=== PATIENT | male | born 1955 | race Caucasian/White ===

== ENCOUNTER 2020-05-26 15:27 | Inpatient (IN) | payer BC, MEDICARE ==
[2020-05-26] MEDS ORDERED: Acetaminophen 500 MG Tab PO ONE (16:15)
[2020-05-26] MEDS ORDERED: guaiFENesin 600 MG Tab.ER PO ONE (16:18)
[2020-05-26] MEDS ORDERED: cefTRIAXone 1 GM in Sodium Chloride 0.9% 50 ML IV ONE (17:07)
[2020-05-26] MEDS ORDERED: Azithromycin 500 MG in Sodium Chloride 0.9% 250 ML IV ONE (17:08)
--- NOTE | 2020-05-26 17:47 | CR ---
INDICATION: Cough, shortness of breath, COVID negative. CHEST TWO VIEWS: Two PA views and a lateral view of the chest were obtained 05/26/20 and compared with 06/06/16 again revealing the heart to be normal in size and shape. Prominent AP diameter with slightly flattened diaphragm leaves suggest progressive COPD and/or exacerbation of COPD. Pulmonary markings are similar to the previous examination, without a definite active infiltrate or effusion. Progressive hypertrophic degenerative changes are noted at mid thoracic level of moderate degree. A nodular appearing density in the right lower lung field most likely represents nipple shadow and likely was present on the previous study. Evidence of exogenous obesity is suggested. Some linear densities are noted at the left costophrenic that appear to be new and may be on the basis of interval fibrosis or possibly subsegmental atelectasis. IMPRESSION: 1. Possible exacerbation or progressive COPD. 2. No other definite acute process. 3. DJD spine - progressive. MTDD
--- NOTE | 2020-05-26 18:13 | EDM.PDOC ---
ED HPI GENERAL MEDICAL PROBLEM - General Chief Complaint: Respiratory Problem Stated Complaint: cough , shortness of breath Time Seen by Provider: 05/26/20 16:05 Source of Information: Reports: Patient, Family History Limitations: Reports: No Limitations - History of Present Illness INITIAL COMMENTS - FREE TEXT/NARRATIVE: developed cough 3-4 days prior with clear phlegm , has been getting worse and in the last 24 hrs , changed color to thick yellow , producing more phlegm and getting fever and chills today denies contact with COVID patients states he has history of CHF but has not had any leg swelling recently Onset: Gradual Onset Date: 05/24/20 Duration: Day(s): (3), Getting Worse Location: Reports: Chest Quality: Reports: Pressure (with coughing) Severity: Moderate Worsens with: Reports: None Context: Reports: Other (unsure : has history of COPD) Associated Symptoms: Reports: Cough, Fever/Chills, Malaise, Shortness of Breath, Weakness Generalized Pain Score (Numeric/FACES): 4 DENIES ANY PAIN WHEN ASKED AT PRESENT TIME. Pain Score (Numeric/FACES): 0 - Related Data Allergies Allergy/AdvReac Type Severity Reaction Status Date / Time No Known Allergies Allergy Verified 06/06/16 08:40 Home Meds: Home Meds Albuterol [Ventolin HFA] 2 puff INH Q4HR PRN 09/14/15 [History] Aspirin [Ecotrin] 81 mg PO DAILY 06/06/16 [History] Folic Acid 1 mg PO DAILY 06/06/16 [History] Furosemide 20 mg PO DAILY 06/06/16 [History] Lisinopril 30 mg PO DAILY 06/06/16 [History] Multivitamin [Multi-Day Vitamins] 1 tab PO DAILY 06/06/16 [History] Tiotropium Dexter [Spiriva] 18 mcg IH DAILY 06/06/16 [History] carvediloL [Carvedilol] 25 mg PO BID 06/06/16 [History] atorvaSTATin [Lipitor] 20 mg PO BEDTIME 05/26/20 [History] Albuterol [Proventil Neb Soln] 2.5 mg IH QID PRN 05/27/20 [History] Past Medical History HEENT History: Reports: None, Epistaxis, Impaired Vision, Otitis Media Cardiovascular History: Reports: CAD, Cardiomyopathy, Heart Failure, Hypertension, NE, SOB on Exertion, Other (See Below) Other Cardiovascular History: Patient states years ago that he ws told by a doctor that he had a murmur. 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 Patient voiced that he has arthritis in his hands/ fingers., hx fx ankle Neurological History: Reports: TIA Psychiatric History: Reports: Anxiety Endocrine/Metabolic History: Reports: Obesity/BMI 30+ Immunologic History: Reports: None Oncologic (Cancer) History: Reports: None Dermatologic History: Reports: None - Infectious Disease History Infectious Disease History: Reports: Chicken Pox, Measles, Mumps, Scarlet Fever - Past Surgical History Head Surgeries/Procedures: Reports: None HEENT Surgical History: Reports: Oral Surgery, Tonsillectomy Cardiovascular Surgical History: Reports: None Respiratory Surgical History: Reports: None GI Surgical History: Reports: Colonoscopy, EGD Male Surgical History: Reports: Vasectomy Musculoskeletal Surgical History: Reports: Carpal Tunnel Other Musculoskeletal Surgeries/Procedures:: L carpal tunnel surgery Social & Family History - Family History Family Medical History: No Pertinent Family History - Tobacco Use Tobacco Use Status *Q: Current Every Day Tobacco User Years of Tobacco use: 45 Packs/Tins Daily: 1 - Caffeine Use Caffeine Use: Reports: None - Alcohol Use Days Per Week of Alcohol Use: 5 Number of Drinks Per Day: 3 Total Drinks Per Week: 15 - Recreational Drug Use Recreational Drug Use: No ED ROS GENERAL - Review of Systems Review Of Systems: See Below Constitutional: Reports: Fever, Chills, Malaise, Weakness, Fatigue HEENT: Reports: Sinus Problem Respiratory: Reports: Shortness of Breath, Cough, Sputum. Denies: Wheezing, Pleuritic Chest Pain, Hemoptysis Cardiovascular: Reports: Lightheadedness Endocrine: Reports: Fatigue GI/Abdominal: Reports: Anorexia : Reports: No Symptoms Musculoskeletal: Reports: No Symptoms Skin: Reports: No Symptoms Neurological: Reports: Dizziness Psychiatric: Reports: Anxiety. Denies: Agitation, Confusion Hematologic/Lymphatic: Reports: No Symptoms Immunologic: Reports: No Symptoms ED EXAM, GENERAL - Physical Exam Exam: See Below Exam Limited By: No Limitations General Appearance: Alert, WD/WN, No Apparent Distress, Anxious Eye Exam: Bilateral Eye: EOMI Ears: Normal External Exam Ear Exam: Bilateral Ear: Auricle Normal Nose: Normal Inspection Throat/Mouth: Normal Oropharynx Head: Atraumatic, Normocephalic Neck: Supple, Non-Tender Respiratory/Chest: Lungs Clear, Normal Breath Sounds Cardiovascular: Normal Peripheral Pulses GI/Abdominal: Normal Bowel Sounds, Soft, Non-Tender, Distended (Male) Exam: Deferred Rectal (Males) Exam: Deferred Back Exam: Full Range of Motion Extremities: Normal Inspection, Normal Range of Motion Neurological: Alert, Oriented, CN II-XII Intact Psychiatric: Anxious Skin Exam: Warm, Dry, Intact Lymphatic: No Adenopathy Course - Vital Signs Last Recorded V/S: Last Vital Signs Temp 37.1 C 05/27/20 07:30 Pulse 98 05/27/20 07:30 Resp 24 H 05/27/20 07:30 BP 105/72 05/27/20 07:30 Pulse Ox 88 L 05/27/20 07:30 - Orders/Labs/Meds Orders: Active Orders 24 hr Category Date Time Status Patient Status [ADT] Routine ADT 05/26/20 19:43 Active Antiembolic Devices [RC] .Routine Care 05/26/20 19:44 Active Intake and Output [RC] 06,14,22 Care 05/26/20 19:43 Active Oxygen Therapy [RC] CONTINUOUS Care 05/26/20 19:53 Active Pulse Oximetry [RC] PRN Care 05/26/20 19:43 Active Up ad Cassandra [RC] ASDIRECTED Care 05/26/20 19:43 Active VTE/DVT Education [RC] Click to Edit Care 05/26/20 19:44 Active Vital Signs [RC] 08,12,16,20,00,04 Care 05/26/20 19:43 Active CULTURE BLOOD [BC] Urgent Lab 05/26/20 16:50 Received CULTURE BLOOD [BC] Urgent Lab 05/26/20 16:55 Received Acetaminophen [TylenoL] Med 05/26/20 19:43 Active 650 mg PO Q4H PRN Magnesium Hydroxide [Milk of Magnesia] Med 05/26/20 19:43 Active 30 ml PO BID PRN Blood Culture x2 Reflex Set [OM.PC] Urgent Oth 05/26/20 16:13 Ordered DVT/VTE Prophylaxis Reflex [OM.PC] Per Unit Routine Oth 05/26/20 19:43 Ordered Isolation [COMM] Routine Oth 05/26/20 15:40 Ordered Resuscitation Status Routine Resus Stat 05/26/20 19:43 Ordered EKG 12 Lead [EK] Routine Ther 05/26/20 19:34 Ordered Medication Orders Acetaminophen (Tylenol) 650 mg PO Q4H PRN PRN Reason: analgesia/fever Albuterol (Ventolin Hfa) 0 gm INH Q4H PRN PRN Reason: Wheezing Albuterol/Ipratropium (Duoneb 3.0-0.5 Mg/3 Ml) 3 ml NEB QID PRN PRN Reason: Cough Last Admin: 05/27/20 05:52 Dose: 3 ml Documented by: Admin: 05/26/20 23:27 Dose: 3 ml Documented by: KERLINE Aspirin (Halfprin) 81 mg PO DAILY [facility] Atorvastatin Calcium (Lipitor) 20 mg PO BEDTIME INGRID Last Admin: 05/26/20 21:59 Dose: 20 mg Documented by: KERLINE Carvedilol (Coreg) 25 mg PO BIDMEALS [facility] Ceftriaxone Sodium (Rocephin) 1 gm IVPUSH Q24H [facility] Enoxaparin Sodium (Lovenox) 40 mg SUBCUT DAILY [facility] Folic Acid (Folic Acid) 1 mg PO DAILY [facility] Furosemide (Lasix) 20 mg PO DAILY [facility] Azithromycin 500 mg/ Sodium (Chloride) 250 mls @ 250 mls/hr IV Q24H [facility] Stop: 05/28/20 10:14 Lisinopril (Prinivil) 30 mg PO DAILY [facility] Magnesium Hydroxide (Milk Of Magnesia) 30 ml PO BID PRN PRN Reason: Constipation Tiotropium Dexter (Spiriva Handihaler) 18 mcg INH DAILY [facility] Labs: Laboratory Tests 05/26/20 05/26/20 05/26/20 Range/Units 15:55 16:05 16:05 WBC 17.1 H (3.2-10.1) x10-3/uL RBC 4.87 (3.90-5.90) x10(6)uL Hgb 16.2 (12.9-17.7) g/dL Hct 49.2 (38.3-50.1) % MCV 101.1 H (80.8-98.7) fL MCH 33.3 (27.0-33.3) pg MCHC 32.9 (28.7-35.3) g/dL RDW 13.0 (12.4-15.0) % Plt Count 181 (117-477) x10(3)uL MPV 9.1 (6.7-11.0) fL Neut % (Auto) 83.1 H (40.3-71.8) % Lymph % (Auto) 10.0 L (15.8-45.3) % Sutter % (Auto) 6.2 (5.5-15.2) % Eos % (Auto) 0.4 (0.1-6.8) % Baso % (Auto) 0.3 (0.3-3.8) % Neut # (Auto) 14.2 H (1.7-6.9) x10-3/uL Lymph # (Auto) 1.7 (0.5-4.5) x10-3/uL Sutter # (Auto) 1.1 (0.0-1.2) x10-3/uL Eos # (Auto) 0.1 (0.0-0.6) x10-3/uL Baso # (Auto) 0.0 (0.0-0.3) x10-3/uL D-Dimer, Quantitative (0.0-0.59) mg/LFEU Sodium 136 (135-145) mmol/L Potassium 3.8 (3.5-5.3) mmol/L Chloride 95 L (100-110) mmol/L Carbon Dioxide 31 (21-32) mmol/L BUN 11 (7-18) mg/dL Creatinine 1.0 (0.70-1.30) mg/dL Est Cr Clr Drug Dosing 70.30 mL/min Estimated GFR (MDRD) > 60 (>60) BUN/Creatinine Ratio 11.0 (9-20) Glucose 121 H (80-116) mg/dL Lactic Acid (0.4-2.0) mmol/L Calcium 8.9 (8.6-10.2) mg/dL Total Bilirubin 0.9 (0.1-1.3) mg/dL AST 24 (5-25) IU/L ALT 29 (12-36) U/L Alkaline Phosphatase 114 H (56-112) IU/L Troponin I (4.0-60.3) pg/mL C-Reactive Protein (0.5-0.9) mg/dL NT-Pro-B Natriuret Pep (<=125) pg/mL Total Protein 7.9 (6.0-8.0) g/dL Albumin 3.1 L (3.2-4.6) g/dL Globulin 4.8 g/dL Albumin/Globulin Ratio 0.7 SARS-CoV-2 RNA (KIM) Negative (NEGATIVE) 05/26/20 05/26/20 05/26/20 Range/Units 16:05 16:05 16:25 WBC (3.2-10.1) x10-3/uL RBC (3.90-5.90) x10(6)uL Hgb (12.9-17.7) g/dL Hct (38.3-50.1) % MCV (80.8-98.7) fL MCH (27.0-33.3) pg MCHC (28.7-35.3) g/dL RDW (12.4-15.0) % Plt Count (117-477) x10(3)uL MPV (6.7-11.0) fL Neut % (Auto) (40.3-71.8) % Lymph % (Auto) (15.8-45.3) % Sutter % (Auto) (5.5-15.2) % Eos % (Auto) (0.1-6.8) % Baso % (Auto) (0.3-3.8) % Neut # (Auto) (1.7-6.9) x10-3/uL Lymph # (Auto) (0.5-4.5) x10-3/uL Sutter # (Auto) (0.0-1.2) x10-3/uL Eos # (Auto) (0.0-0.6) x10-3/uL Baso # (Auto) (0.0-0.3) x10-3/uL D-Dimer, Quantitative 0.62 H (0.0-0.59) mg/LFEU Sodium (135-145) mmol/L Potassium (3.5-5.3) mmol/L Chloride (100-110) mmol/L Carbon Dioxide (21-32) mmol/L BUN (7-18) mg/dL Creatinine (0.70-1.30) mg/dL Est Cr Clr Drug Dosing mL/min Estimated GFR (MDRD) (>60) BUN/Creatinine Ratio (9-20) Glucose (80-116) mg/dL Lactic Acid (0.4-2.0) mmol/L Calcium (8.6-10.2) mg/dL Total Bilirubin (0.1-1.3) mg/dL AST (5-25) IU/L ALT (12-36) U/L Alkaline Phosphatase (56-112) IU/L Troponin I 109.6 H* (4.0-60.3) pg/mL C-Reactive Protein (0.5-0.9) mg/dL NT-Pro-B Natriuret Pep 89 (<=125) pg/mL Total Protein (6.0-8.0) g/dL Albumin (3.2-4.6) g/dL Globulin g/dL Albumin/Globulin Ratio SARS-CoV-2 RNA (KIM) (NEGATIVE) 05/26/20 05/26/20 05/26/20 Range/Units 16:50 16:50 19:05 WBC (3.2-10.1) x10-3/uL RBC (3.90-5.90) x10(6)uL Hgb (12.9-17.7) g/dL Hct (38.3-50.1) % MCV (80.8-98.7) fL MCH (27.0-33.3) pg MCHC (28.7-35.3) g/dL RDW (12.4-15.0) % Plt Count (117-477) x10(3)uL MPV (6.7-11.0) fL Neut % (Auto) (40.3-71.8) % Lymph % (Auto) (15.8-45.3) % Sutter % (Auto) (5.5-15.2) % Eos % (Auto) (0.1-6.8) % Baso % (Auto) (0.3-3.8) % Neut # (Auto) (1.7-6.9) x10-3/uL Lymph # (Auto) (0.5-4.5) x10-3/uL Sutter # (Auto) (0.0-1.2) x10-3/uL Eos # (Auto) (0.0-0.6) x10-3/uL Baso # (Auto) (0.0-0.3) x10-3/uL D-Dimer, Quantitative (0.0-0.59) mg/LFEU Sodium (135-145) mmol/L Potassium (3.5-5.3) mmol/L Chloride (100-110) mmol/L Carbon Dioxide (21-32) mmol/L BUN (7-18) mg/dL Creatinine (0.70-1.30) mg/dL Est Cr Clr Drug Dosing mL/min Estimated GFR (MDRD) (>60) BUN/Creatinine Ratio (9-20) Glucose (80-116) mg/dL Lactic Acid 0.8 (0.4-2.0) mmol/L Calcium (8.6-10.2) mg/dL Total Bilirubin (0.1-1.3) mg/dL AST (5-25) IU/L ALT (12-36) U/L Alkaline Phosphatase (56-112) IU/L Troponin I 100.9 H* (4.0-60.3) pg/mL C-Reactive Protein 21.1 H* (0.5-0.9) mg/dL NT-Pro-B Natriuret Pep (<=125) pg/mL Total Protein (6.0-8.0) g/dL Albumin (3.2-4.6) g/dL Globulin g/dL Albumin/Globulin Ratio SARS-CoV-2 RNA (KIM) (NEGATIVE) Meds: Medications Generic Name Dose Route Start Last Admin Trade Name Freq PRN Reason Stop Dose Admin Acetaminophen 650 mg 05/26/20 19:43 Tylenol PO Q4H PRN analgesia/fever Albuterol 0 gm 05/26/20 20:48 Ventolin Hfa INH Q4H PRN Wheezing Albuterol/Ipratropium 3 ml 05/26/20 20:48 05/27/20 05:52 Duoneb 3.0-0.5 Mg/3 Ml NEB 3 ml QID PRN Administration Cough Aspirin 81 mg 05/27/20 09:00 Halfprin PO DAILY [facility] Atorvastatin Calcium 20 mg 05/26/20 21:00 05/26/20 21:59 Lipitor PO 20 mg BEDTIME [facility] Administration Carvedilol 25 mg 05/27/20 08:00 Coreg PO BIDMEALS [facility] Ceftriaxone Sodium 1 gm 05/27/20 17:00 Rocephin IVPUSH Q24H [facility] Enoxaparin Sodium 40 mg 05/27/20 09:30 Lovenox SUBCUT DAILY [facility] Folic Acid 1 mg 05/27/20 09:00 Folic Acid PO DAILY [facility] Furosemide 20 mg 05/27/20 09:00 Lasix PO DAILY [facility] Azithromycin 500 mg/ Sodium 250 mls @ 250 mls/hr 05/27/20 09:15 Chloride IV 05/28/20 10:14 Q24H [facility] Lisinopril 30 mg 05/27/20 09:00 Prinivil PO DAILY [facility] Magnesium Hydroxide 30 ml 05/26/20 19:43 Milk Of Magnesia PO BID PRN Constipation Tiotropium Dexter 18 mcg 05/27/20 09:00 Spiriva Handihaler INH DAILY [facility] Discontinued Medications Generic Name Dose Route Start Last Admin Trade Name Freq PRN Reason Stop Dose Admin Acetaminophen 1,000 mg 05/26/20 16:15 05/26/20 16:25 Tylenol Extra Strength PO 05/26/20 16:16 1,000 mg ONETIME ONE Administration Carvedilol 25 mg 05/26/20 21:00 05/27/20 06:15 Coreg PO Not Given BID [facility] Carvedilol 25 mg 05/26/20 22:00 05/26/20 21:59 Coreg PO 05/26/20 22:01 25 mg ONETIME ONE Administration Furosemide 20 mg 05/27/20 09:00 Lasix PO DAILY [facility] Guaifenesin 600 mg 05/26/20 16:18 05/26/20 16:25 Mucinex PO 05/26/20 16:19 600 mg ONETIME ONE Administration Ceftriaxone Sodium 1 gm/ 50 mls @ 200 mls/hr 05/26/20 17:07 05/26/20 17:22 Sodium Chloride IV 05/26/20 17:21 200 mls/hr ONETIME ONE Administration Azithromycin 500 mg/ Sodium 250 mls @ 250 mls/hr 05/26/20 17:08 05/26/20 17:50 Chloride IV 05/26/20 18:07 250 mls/hr ONETIME ONE Administration Tiotropium Dexter 18 mcg 05/26/20 20:48 Spiriva Handihaler INH DAILY PRN Shortness of Breath - Re-Assessments/Exams Free Text/Narrative Re-Assessment/Exam: 05/26/20 18:10 pt had EKG , chest Xray and screened for COVID ( negative ) CBC was elevated , : sepsis screen completed and pt given 2 doses of antibiotics Has been having productive cough , has been o n2 liters of oxygen Feeling better Troponin results noted : discussed with pt need to go to in [place] : pt declined Recommended to recheck Troponin level and then re-assess 05/27/20 00:46 Repeat troponin was about the same . Will admit pt and repeat troponin in 6hrs. denies any chset pain , still has sob still declines to go to [place] Will need CT chest Departure - Departure Time of Disposition: 20:00 Disposition: Admitted As Inpatient 65 Clinical Impression: Elevated troponin level, Shortness of breath, Hypoxemia, Fever, Pneumonia - Discharge Information *PRESCRIPTION DRUG MONITORING PROGRAM REVIEWED*: Not Applicable *COPY OF PRESCRIPTION DRUG MONITORING REPORT IN PATIENT SIMIN: Not Applicable Sepsis Event Note (ED) - Evaluation Sepsis Screening Result: Possible Sepsis Risk - My Orders Last 24 Hours: My Active Orders 05/26/20 15:40 Isolation [COMM] Routine 05/26/20 16:13 Blood Culture x2 Reflex Set [OM.PC] Urgent 05/26/20 16:50 CULTURE BLOOD [BC] Urgent 05/26/20 16:55 CULTURE BLOOD [BC] Urgent 05/26/20 19:34 EKG 12 Lead [EK] Routine 05/26/20 19:43 Patient Status [ADT] Routine Intake and Output [RC] 06,14,22 Pulse Oximetry [RC] PRN Up ad Cassandra [RC] ASDIRECTED Vital Signs [RC] 08,12,16,20,00,04 Acetaminophen [TylenoL] 650 mg PO Q4H PRN Magnesium Hydroxide [Milk of Magnesia] 30 ml PO BID PRN DVT/VTE Prophylaxis Reflex [OM.PC] Per Unit Routine Resuscitation Status Routine 05/26/20 19:44 Antiembolic Devices [RC] .Routine VTE/DVT Education [RC] Click to Edit 05/26/20 19:53 Oxygen Therapy [RC] CONTINUOUS - Assessment/Plan Last 24 Hours: My Active Orders 05/26/20 15:40 Isolation [COMM] Routine 05/26/20 16:13 Blood Culture x2 Reflex Set [OM.PC] Urgent 05/26/20 16:50 CULTURE BLOOD [BC] Urgent 05/26/20 16:55 CULTURE BLOOD [BC] Urgent 05/26/20 19:34 EKG 12 Lead [EK] Routine 05/26/20 19:43 Patient Status [ADT] Routine Intake and Output [RC] 06,14,22 Pulse Oximetry [RC] PRN Up ad Cassandra [RC] ASDIRECTED Vital Signs [RC] 08,12,16,20,00,04 Acetaminophen [TylenoL] 650 mg PO Q4H PRN Magnesium Hydroxide [Milk of Magnesia] 30 ml PO BID PRN DVT/VTE Prophylaxis Reflex [OM.PC] Per Unit Routine Resuscitation Status Routine 05/26/20 19:44 Antiembolic Devices [RC] .Routine VTE/DVT Education [RC] Click to Edit 05/26/20 19:53 Oxygen Therapy [RC] CONTINUOUS
[2020-05-26] MEDS ORDERED: Magnesium Hydroxide 400 MG/5 ML Susp 30 ML Cup PO PRN (19:43)
[2020-05-26] MEDS ORDERED: Tiotropium Inhaler 18 MCG Inhalation Powder Cap Kit of 5 INH PRN (20:48)
[2020-05-26] MEDS ORDERED: Albuterol 8 GM Inhaler INH PRN (20:48)
[2020-05-26] MEDS ORDERED: Carvedilol 25 MG Tab PO SCH (21:00)
[2020-05-26] MEDS: atorvaSTATin 20 MG Tab PO SCH (21:59)
[2020-05-26] MEDS ORDERED: Carvedilol 25 MG Tab PO ONE (22:00)
[2020-05-26] MEDS: Albuterol/Ipratropium 3.0-0.5 MG/3 ML Neb Soln NEB PRN (23:27)
[2020-05-27] MEDS: Albuterol/Ipratropium 3.0-0.5 MG/3 ML Neb Soln NEB PRN ×2 (05:52→23:26)
[2020-05-27] MEDS ORDERED: Lisinopril 20 MG Tab PO SCH (09:00)
[2020-05-27] MEDS ORDERED: Furosemide 20 MG Tab PO SCH (09:00)
--- NOTE | 2020-05-27 09:35 | PCM.HP.2 ---
H&P History of Present Illness - General Date of Service: 05/27/20 Admit Problem/Dx: Acute hypoxic respiratory failure, COPD exacerbation, heart failure with reduced ejection fraction Admission Diagnosis/Problem Admission Diagnosis/Problem Shortness of breath Source of Information: Patient, Old Records, Other History Limitations: Reports: No Limitations - History of Present Illness Initial Comments - Free Text/Narative: 65-year-old gentleman with extensive past medical history including cardiomyopathy, heart failure with reduced ejection fraction, COPD, continued cigarette smoking came to the emergency department because of difficulty breathing, coughing, increased sputum production. He states that over the period of about 1 week he has had increasing shortness of breath, increasing orthopnea, increasing cough with sputum production. He states that he has had to sleep in his recliner because of shortness of breath. He states that he normally has the head of his bed elevated. He does not use oxygen at home. He states that the last time he was hospitalized for similar symptoms he thinks was around 2016 review of medical records shows at that time an echocardiogram was completed and showed dilation of the left ventricle with ejection fraction of 35%. He has not had exacerbation of COPD over the last 4 years. He states that he has been able to quit smoking for as many as 2 years at a time but is currently smoking. Generalized Pain Score (Numeric/FACES): 4 DENIES ANY PAIN WHEN ASKED AT PRESENT TIME. Pain Score (Numeric/FACES): 0 - Related Data Allergies/Adverse Reactions: Allergies Allergy/AdvReac Type Severity Reaction Status Date / Time No Known Allergies Allergy Verified 06/06/16 08:40 Home Medications: Home Meds Albuterol [Ventolin HFA] 2 puff INH Q4HR PRN 09/14/15 [History] Aspirin [Ecotrin] 81 mg PO DAILY 06/06/16 [History] Folic Acid 1 mg PO DAILY 06/06/16 [History] Furosemide 20 mg PO DAILY 06/06/16 [History] Lisinopril 30 mg PO DAILY 06/06/16 [History] Multivitamin [Multi-Day Vitamins] 1 tab PO DAILY 06/06/16 [History] Tiotropium [place] [Spiriva] 18 mcg IH DAILY 06/06/16 [History] carvediloL [Carvedilol] 25 mg PO BID 06/06/16 [History] atorvaSTATin [Lipitor] 20 mg PO BEDTIME 05/26/20 [History] Albuterol [Proventil Neb Soln] 2.5 mg IH QID PRN 05/27/20 [History] Past Medical History HEENT History: Reports: None, Epistaxis, Impaired Vision, Otitis Media Cardiovascular History: Reports: CAD, Cardiomyopathy, Heart Failure, Hypertension, [place], SOB on Exertion, Other (See Below) Other Cardiovascular History: Patient states years ago that he ws told by a doctor that he had a murmur. Respiratory History: Reports: Bronchitis, Recurrent, COPD, Pneumonia, Recurrent, SOB Gastrointestinal History: Reports: GERD, PUD Genitourinary History: Reports: None, UTI, Recurrent TESTING ENGINEER History: Reports: None Musculoskeletal History: Reports: Arthritis, Fracture, Other (See Below) Other Musculoskeletal History: SUPRASPINATUS SPRAIN. Patient voiced that he has arthritis in his hands/ fingers., hx fx ankle Neurological History: Reports: TIA Psychiatric History: Reports: Anxiety Endocrine/Metabolic History: Reports: Obesity/BMI 30+ Immunologic History: Reports: None Oncologic (Cancer) History: Reports: None Dermatologic History: Reports: None - Infectious Disease History Infectious Disease History: Reports: Chicken Pox, Measles, Mumps, Scarlet Fever - Past Surgical History Head Surgeries/Procedures: Reports: None HEENT Surgical History: Reports: Oral Surgery, Tonsillectomy Cardiovascular Surgical History: Reports: None Respiratory Surgical History: Reports: None GI Surgical History: Reports: Colonoscopy, EGD Male Surgical History: Reports: Vasectomy Musculoskeletal Surgical History: Reports: Carpal Tunnel Other Musculoskeletal Surgeries/Procedures:: L carpal tunnel surgery Social & Family History - Family History Family Medical History: No Pertinent Family History - Tobacco Use Tobacco Use Status *Q: Current Every Day Tobacco User Years of Tobacco use: 50 Packs/Tins Daily: 1 Second Hand Smoke Exposure: Yes - Caffeine Use Caffeine Use: Reports: Coffee - Alcohol Use Days Per Week of Alcohol Use: 7 Number of Drinks Per Day: 4 Total Drinks Per Week: 28 - Recreational Drug Use Recreational Drug Use: No H&P Review of Systems - Review of Systems: Review Of Systems: See Below General: Reports: Weakness, Fatigue HEENT: Reports: No Symptoms Pulmonary: Reports: Shortness of Breath, Wheezing, Cough, Sputum Cardiovascular: Reports: Dyspnea on Exertion, Orthopnea, PND, Edema Gastrointestinal: Reports: Abdominal Pain, Constipation, Distension Musculoskeletal: Reports: No Symptoms Skin: Reports: No Symptoms Psychiatric: Reports: No Symptoms Exam - Exam Exam: See Below - Vital Signs Vital Signs: Last Vital Signs Temp 37.1 C 05/27/20 07:30 Pulse 98 05/27/20 07:30 Resp 24 H 05/27/20 07:30 BP 105/72 05/27/20 07:30 Pulse Ox 88 L 05/27/20 07:30 Weight: 98.911 kg - Exam Quality Assessment: Supplemental Oxygen, DVT Prophylaxis General: Alert, Oriented, Cooperative Lungs: Decreased Breath Sounds, Crackles, Wheezing Cardiovascular: Regular Rate, Regular Rhythm (Heart sounds are distant) Extremities: Pedal Edema Skin: Warm, Dry, Intact Neurological: Strength Equal Bilateral, Normal Gait, Normal Speech, Normal Tone Neuro Extensive - Mental Status: Alert, Oriented x3 Psychiatric: Alert, Normal Affect - Patient Data Lab Results Last 24 hrs: Laboratory Results - last 24 hr 05/26/20 05/26/20 05/26/20 Range/Units 15:55 16:05 16:05 WBC 17.1 H (3.2-10.1) x10-3/uL RBC 4.87 (3.90-5.90) x10(6)uL Hgb 16.2 (12.9-17.7) g/dL Hct 49.2 (38.3-50.1) % MCV 101.1 H (80.8-98.7) fL MCH 33.3 (27.0-33.3) pg MCHC 32.9 (28.7-35.3) g/dL RDW 13.0 (12.4-15.0) % Plt Count 181 (117-477) x10(3)uL MPV 9.1 (6.7-11.0) fL Neut % (Auto) 83.1 H (40.3-71.8) % Lymph % (Auto) 10.0 L (15.8-45.3) % [place] % (Auto) 6.2 (5.5-15.2) % Eos % (Auto) 0.4 (0.1-6.8) % Baso % (Auto) 0.3 (0.3-3.8) % Neut # (Auto) 14.2 H (1.7-6.9) x10-3/uL Lymph # (Auto) 1.7 (0.5-4.5) x10-3/uL [place] # (Auto) 1.1 (0.0-1.2) x10-3/uL Eos # (Auto) 0.1 (0.0-0.6) x10-3/uL Baso # (Auto) 0.0 (0.0-0.3) x10-3/uL Add Manual Diff Neutrophils % (Manual) (46-82) % Lymphocytes % (Manual) (13-37) % Monocytes % (Manual) (4-12) % Macrocytosis PT (9.0-11.1) sec INR (1.00-1.24) D-Dimer, Quantitative (0.0-0.59) mg/LFEU Sodium 136 (135-145) mmol/L Potassium 3.8 (3.5-5.3) mmol/L Chloride 95 L (100-110) mmol/L Carbon Dioxide 31 (21-32) mmol/L BUN 11 (7-18) mg/dL Creatinine 1.0 (0.70-1.30) mg/dL Est Cr Clr Drug Dosing 70.30 mL/min Estimated GFR (MDRD) > 60 (>60) BUN/Creatinine Ratio 11.0 (9-20) Glucose 121 H (80-116) mg/dL Lactic Acid (0.4-2.0) mmol/L Calcium 8.9 (8.6-10.2) mg/dL Total Bilirubin 0.9 (0.1-1.3) mg/dL AST 24 (5-25) IU/L ALT 29 (12-36) U/L Alkaline Phosphatase 114 H (56-112) IU/L Troponin I (4.0-60.3) pg/mL C-Reactive Protein (0.5-0.9) mg/dL NT-Pro-B Natriuret Pep (<=125) pg/mL Total Protein 7.9 (6.0-8.0) g/dL Albumin 3.1 L (3.2-4.6) g/dL Globulin 4.8 g/dL Albumin/Globulin Ratio 0.7 Urine Color (YELLOW) Urine Appearance (CLEAR) Urine pH (5.0-6.5) Ur Specific [place] (1.010-1.025) Urine Protein (NEGATIVE) mg/dL Urine Glucose (UA) (NORMAL) mg/dL Urine Ketones (NEGATIVE) mg/dL Urine Occult Blood (NEGATIVE) Urine Nitrite (NEGATIVE) Urine Bilirubin (NEGATIVE) Urine Urobilinogen (NEGATIVE) mg/dL Ur Leukocyte Esterase (NEGATIVE) Urine RBC (0-5) Urine WBC (0-5) Ur Squamous Epith Cells (NS,R,O) Urine Bacteria (NS) SARS-CoV-2 RNA (KIM) Negative (NEGATIVE) 05/26/20 05/26/20 05/26/20 Range/Units 16:05 16:05 16:25 WBC (3.2-10.1) x10-3/uL RBC (3.90-5.90) x10(6)uL Hgb (12.9-17.7) g/dL Hct (38.3-50.1) % MCV (80.8-98.7) fL MCH (27.0-33.3) pg MCHC (28.7-35.3) g/dL RDW (12.4-15.0) % Plt Count (117-477) x10(3)uL MPV (6.7-11.0) fL Neut % (Auto) (40.3-71.8) % Lymph % (Auto) (15.8-45.3) % [place] % (Auto) (5.5-15.2) % Eos % (Auto) (0.1-6.8) % Baso % (Auto) (0.3-3.8) % Neut # (Auto) (1.7-6.9) x10-3/uL Lymph # (Auto) (0.5-4.5) x10-3/uL [place] # (Auto) (0.0-1.2) x10-3/uL Eos # (Auto) (0.0-0.6) x10-3/uL Baso # (Auto) (0.0-0.3) x10-3/uL Add Manual Diff Neutrophils % (Manual) (46-82) % Lymphocytes % (Manual) (13-37) % Monocytes % (Manual) (4-12) % Macrocytosis PT (9.0-11.1) sec INR (1.00-1.24) D-Dimer, Quantitative 0.62 H (0.0-0.59) mg/LFEU Sodium (135-145) mmol/L Potassium (3.5-5.3) mmol/L Chloride (100-110) mmol/L Carbon Dioxide (21-32) mmol/L BUN (7-18) mg/dL Creatinine (0.70-1.30) mg/dL Est Cr Clr Drug Dosing mL/min Estimated GFR (MDRD) (>60) BUN/Creatinine Ratio (9-20) Glucose (80-116) mg/dL Lactic Acid (0.4-2.0) mmol/L Calcium (8.6-10.2) mg/dL Total Bilirubin (0.1-1.3) mg/dL AST (5-25) IU/L ALT (12-36) U/L Alkaline Phosphatase (56-112) IU/L Troponin I 109.6 H* (4.0-60.3) pg/mL C-Reactive Protein (0.5-0.9) mg/dL NT-Pro-B Natriuret Pep 89 (<=125) pg/mL Total Protein (6.0-8.0) g/dL Albumin (3.2-4.6) g/dL Globulin g/dL Albumin/Globulin Ratio Urine Color (YELLOW) Urine Appearance (CLEAR) Urine pH (5.0-6.5) Ur Specific [place] (1.010-1.025) Urine Protein (NEGATIVE) mg/dL Urine Glucose (UA) (NORMAL) mg/dL Urine Ketones (NEGATIVE) mg/dL Urine Occult Blood (NEGATIVE) Urine Nitrite (NEGATIVE) Urine Bilirubin (NEGATIVE) Urine Urobilinogen (NEGATIVE) mg/dL Ur Leukocyte Esterase (NEGATIVE) Urine RBC (0-5) Urine WBC (0-5) Ur Squamous Epith Cells (NS,R,O) Urine Bacteria (NS) SARS-CoV-2 RNA (KIM) (NEGATIVE) 05/26/20 05/26/20 05/26/20 Range/Units 16:50 16:50 19:05 WBC (3.2-10.1) x10-3/uL RBC (3.90-5.90) x10(6)uL Hgb (12.9-17.7) g/dL Hct (38.3-50.1) % MCV (80.8-98.7) fL MCH (27.0-33.3) pg MCHC (28.7-35.3) g/dL RDW (12.4-15.0) % Plt Count (117-477) x10(3)uL MPV (6.7-11.0) fL Neut % (Auto) (40.3-71.8) % Lymph % (Auto) (15.8-45.3) % [place] % (Auto) (5.5-15.2) % Eos % (Auto) (0.1-6.8) % Baso % (Auto) (0.3-3.8) % Neut # (Auto) (1.7-6.9) x10-3/uL Lymph # (Auto) (0.5-4.5) x10-3/uL [place] # (Auto) (0.0-1.2) x10-3/uL Eos # (Auto) (0.0-0.6) x10-3/uL Baso # (Auto) (0.0-0.3) x10-3/uL Add Manual Diff Neutrophils % (Manual) (46-82) % Lymphocytes % (Manual) (13-37) % Monocytes % (Manual) (4-12) % Macrocytosis PT (9.0-11.1) sec INR (1.00-1.24) D-Dimer, Quantitative (0.0-0.59) mg/LFEU Sodium (135-145) mmol/L Potassium (3.5-5.3) mmol/L Chloride (100-110) mmol/L Carbon Dioxide (21-32) mmol/L BUN (7-18) mg/dL Creatinine (0.70-1.30) mg/dL Est Cr Clr Drug Dosing mL/min Estimated GFR (MDRD) (>60) BUN/Creatinine Ratio (9-20) Glucose (80-116) mg/dL Lactic Acid 0.8 (0.4-2.0) mmol/L Calcium (8.6-10.2) mg/dL Total Bilirubin (0.1-1.3) mg/dL AST (5-25) IU/L ALT (12-36) U/L Alkaline Phosphatase (56-112) IU/L Troponin I 100.9 H* (4.0-60.3) pg/mL C-Reactive Protein 21.1 H* (0.5-0.9) mg/dL NT-Pro-B Natriuret Pep (<=125) pg/mL Total Protein (6.0-8.0) g/dL Albumin (3.2-4.6) g/dL Globulin g/dL Albumin/Globulin Ratio Urine Color (YELLOW) Urine Appearance (CLEAR) Urine pH (5.0-6.5) Ur Specific [place] (1.010-1.025) Urine Protein (NEGATIVE) mg/dL Urine Glucose (UA) (NORMAL) mg/dL Urine Ketones (NEGATIVE) mg/dL Urine Occult Blood (NEGATIVE) Urine Nitrite (NEGATIVE) Urine Bilirubin (NEGATIVE) Urine Urobilinogen (NEGATIVE) mg/dL Ur Leukocyte Esterase (NEGATIVE) Urine RBC (0-5) Urine WBC (0-5) Ur Squamous Epith Cells (NS,R,O) Urine Bacteria (NS) SARS-CoV-2 RNA (KIM) (NEGATIVE) 05/26/20 05/27/20 05/27/20 Range/Units 22:05 01:45 06:20 WBC 15.2 H (3.2-10.1) x10-3/uL RBC 4.69 (3.90-5.90) x10(6)uL Hgb 15.7 (12.9-17.7) g/dL Hct 47.4 (38.3-50.1) % MCV 101.1 H (80.8-98.7) fL MCH 33.6 H (27.0-33.3) pg MCHC 33.2 (28.7-35.3) g/dL RDW 13.0 (12.4-15.0) % Plt Count 198 (117-477) x10(3)uL MPV 8.9 (6.7-11.0) fL Neut % (Auto) (40.3-71.8) % Lymph % (Auto) (15.8-45.3) % [place] % (Auto) (5.5-15.2) % Eos % (Auto) (0.1-6.8) % Baso % (Auto) (0.3-3.8) % Neut # (Auto) (1.7-6.9) x10-3/uL Lymph # (Auto) (0.5-4.5) x10-3/uL [place] # (Auto) (0.0-1.2) x10-3/uL Eos # (Auto) (0.0-0.6) x10-3/uL Baso # (Auto) (0.0-0.3) x10-3/uL Add Manual Diff Yes Neutrophils % (Manual) 75 (46-82) % Lymphocytes % (Manual) 16 (13-37) % Monocytes % (Manual) 9 (4-12) % Macrocytosis Occasional PT (9.0-11.1) sec INR (1.00-1.24) D-Dimer, Quantitative (0.0-0.59) mg/LFEU Sodium (135-145) mmol/L Potassium (3.5-5.3) mmol/L Chloride (100-110) mmol/L Carbon Dioxide (21-32) mmol/L BUN (7-18) mg/dL Creatinine (0.70-1.30) mg/dL Est Cr Clr Drug Dosing mL/min Estimated GFR (MDRD) (>60) BUN/Creatinine Ratio (9-20) Glucose (80-116) mg/dL Lactic Acid (0.4-2.0) mmol/L Calcium (8.6-10.2) mg/dL Total Bilirubin (0.1-1.3) mg/dL AST (5-25) IU/L ALT (12-36) U/L Alkaline Phosphatase (56-112) IU/L Troponin I 96.3 H* (4.0-60.3) pg/mL C-Reactive Protein (0.5-0.9) mg/dL NT-Pro-B Natriuret Pep (<=125) pg/mL Total Protein (6.0-8.0) g/dL Albumin (3.2-4.6) g/dL Globulin g/dL Albumin/Globulin Ratio Urine Color Yellow (YELLOW) Urine Appearance Clear (CLEAR) Urine pH 5.0 (5.0-6.5) Ur Specific [place] 1.010 (1.010-1.025) Urine Protein Negative (NEGATIVE) mg/dL Urine Glucose (UA) Normal (NORMAL) mg/dL Urine Ketones 15 H (NEGATIVE) mg/dL Urine Occult Blood Negative (NEGATIVE) Urine Nitrite Negative (NEGATIVE) Urine Bilirubin Negative (NEGATIVE) Urine Urobilinogen Normal (NEGATIVE) mg/dL Ur Leukocyte Esterase Negative (NEGATIVE) Urine RBC 0-5 (0-5) Urine WBC 0-5 (0-5) Ur Squamous Epith Cells Occasional (NS,R,O) Urine Bacteria Rare H (NS) SARS-CoV-2 RNA (KIM) (NEGATIVE) 05/27/20 05/27/20 05/27/20 Range/Units 06:20 06:20 06:20 WBC (3.2-10.1) x10-3/uL RBC (3.90-5.90) x10(6)uL Hgb (12.9-17.7) g/dL Hct (38.3-50.1) % MCV (80.8-98.7) fL MCH (27.0-33.3) pg MCHC (28.7-35.3) g/dL RDW (12.4-15.0) % Plt Count (117-477) x10(3)uL MPV (6.7-11.0) fL Neut % (Auto) (40.3-71.8) % Lymph % (Auto) (15.8-45.3) % [place] % (Auto) (5.5-15.2) % Eos % (Auto) (0.1-6.8) % Baso % (Auto) (0.3-3.8) % Neut # (Auto) (1.7-6.9) x10-3/uL Lymph # (Auto) (0.5-4.5) x10-3/uL [place] # (Auto) (0.0-1.2) x10-3/uL Eos # (Auto) (0.0-0.6) x10-3/uL Baso # (Auto) (0.0-0.3) x10-3/uL Add Manual Diff Neutrophils % (Manual) (46-82) % Lymphocytes % (Manual) (13-37) % Monocytes % (Manual) (4-12) % Macrocytosis PT 13.1 H (9.0-11.1) sec INR 1.23 (1.00-1.24) D-Dimer, Quantitative (0.0-0.59) mg/LFEU Sodium 138 (135-145) mmol/L Potassium 4.1 (3.5-5.3) mmol/L Chloride 96 L (100-110) mmol/L Carbon Dioxide 34 H (21-32) mmol/L BUN 12 (7-18) mg/dL Creatinine 0.9 (0.70-1.30) mg/dL Est Cr Clr Drug Dosing 78.11 mL/min Estimated GFR (MDRD) > 60 (>60) BUN/Creatinine Ratio 13.3 (9-20) Glucose 106 (80-116) mg/dL Lactic Acid (0.4-2.0) mmol/L Calcium 8.8 (8.6-10.2) mg/dL Total Bilirubin (0.1-1.3) mg/dL AST (5-25) IU/L ALT (12-36) U/L Alkaline Phosphatase (56-112) IU/L Troponin I (4.0-60.3) pg/mL C-Reactive Protein (0.5-0.9) mg/dL NT-Pro-B Natriuret Pep 193 H (<=125) pg/mL Total Protein (6.0-8.0) g/dL Albumin (3.2-4.6) g/dL Globulin g/dL Albumin/Globulin Ratio Urine Color (YELLOW) Urine Appearance (CLEAR) Urine pH (5.0-6.5) Ur Specific [place] (1.010-1.025) Urine Protein (NEGATIVE) mg/dL Urine Glucose (UA) (NORMAL) mg/dL Urine Ketones (NEGATIVE) mg/dL Urine Occult Blood (NEGATIVE) Urine Nitrite (NEGATIVE) Urine Bilirubin (NEGATIVE) Urine Urobilinogen (NEGATIVE) mg/dL Ur Leukocyte Esterase (NEGATIVE) Urine RBC (0-5) Urine WBC (0-5) Ur Squamous Epith Cells (NS,R,O) Urine Bacteria (NS) SARS-CoV-2 RNA (KIM) (NEGATIVE) Result Diagrams: 05/27/20 06:20 05/27/20 06:20 Marcin Results Last 24 hrs: Microbiology 05/26/20 15:55 Influenza Type A Antigen Screen - Final Nasopharyngeal Swab NEGATIVE INFLUENZA A VIRUS AG REFERENCE RANGE: NEGATIVE Influenza Type B Antigen Screen - Final NEGATIVE INFLUENZA B VIRUS AG REFERENCE RANGE: NEGATIVE Sepsis Event Note - Evaluation Sepsis Screening Result: No Definite Risk - Focused Exam Vital Signs: Vital Signs Temp Pulse Pulse Pulse Resp BP BP 05/27/20 07:30 37.1 C 98 24 H 05/27/20 05:00 36.8 C 100 22 H 121/65 05/27/20 00:25 05/27/20 00:00 36.7 C 22 H 102/64 05/26/20 21:59 99 106/57 L BP Pulse Ox 05/27/20 07:30 105/72 88 L 05/27/20 05:00 90 L 05/27/20 00:25 93 L 05/27/20 00:00 82 L 05/26/20 21:59 *Q Meaningful Use (ADM) - VTE *Q VTE Mechanical Contraindications *Q: Bilateral Lower Edema - VTE Risk Assess *Q Each Risk Factor Represents 1 Point: Swollen Legs, Current, Congestive heart failure (CHF), Serious lung disease including pneumonia, Abnormal Pulmonary Function (COPD) Total Score 1 Point Risk Factors: 4 Each Risk Factor Represents 2 Points: Age 60 - 74 Years Total Score 2 Point Risk Factors: 2 - Stroke *Q Antithrombotic Contraindications Stroke *Q: Med/TX Not Indicated/Need - AMI *Q Thrombolytic/Fibrinolytic Contraindications IV (AMI) *Q: Med/tx not indicated/need - Problem List (1) Leukocytosis SNOMED Code(s): 353219044, 966704431 ICD Code: D72.829 - ELEVATED WHITE BLOOD CELL COUNT, UNSPECIFIED Status: Acute Current Visit: Yes (2) Heart failure with reduced ejection fraction SNOMED Code(s): 581253457 ICD Code: I50.20 - UNSPECIFIED SYSTOLIC (CONGESTIVE) HEART FAILURE Status: Acute Current Visit: Yes (3) Bilateral lower extremity edema SNOMED Code(s): 525926507, 70378835, 094982883 ICD Code: R60.0 - LOCALIZED EDEMA Status: Acute Current Visit: Yes (4) Pneumonia SNOMED Code(s): 434323312 ICD Code: J18.9 - PNEUMONIA, UNSPECIFIED ORGANISM Status: Acute Current Visit: Yes Problem List Initiated/Reviewed/Updated: Yes Orders Last 24hrs: Active Orders 24 hr Category Date Time Status Patient Status [ADT] Routine ADT 05/26/20 19:43 Active Antiembolic Devices [RC] .Routine Care 05/26/20 19:44 Active Intake and Output [RC] 06,14,22 Care 05/26/20 19:43 Active Oxygen Therapy [RC] CONTINUOUS Care 05/26/20 19:53 Active Pulse Oximetry [RC] PRN Care 05/26/20 19:43 Active RT Aerosol Therapy [RC] ASDIRECTED Care 05/26/20 20:55 Active RT Post Treatment Assessment [RC] Click to Edit Care 05/26/20 20:55 Active Up ad Cassandra [RC] ASDIRECTED Care 05/26/20 19:43 Active VTE/DVT Education [RC] Click to Edit Care 05/26/20 19:44 Active Vital Signs [RC] 08,12,16,20,00,04 Care 05/26/20 19:43 Active Chest wo Cont [CT] Routine Exams 05/27/20 00:52 Taken Echo Comp w Cont [US] Routine Exams 05/27/20 08:38 Ordered CULTURE BLOOD [BC] Urgent Lab 05/26/20 16:50 Received CULTURE BLOOD [BC] Urgent Lab 05/26/20 16:55 Received Acetaminophen [TylenoL] Med 05/26/20 19:43 Active 650 mg PO Q4H PRN Albuterol [Ventolin HFA] Med 05/26/20 20:48 Active 0 gm INH Q4H PRN Albuterol/Ipratropium [DuoNeb 3.0-0.5 MG/3 ML] Med 05/26/20 20:48 Active 3 ml NEB QID PRN Aspirin [Halfprin] Med 05/27/20 09:00 Active 81 mg PO DAILY Azithromycin [Zithromax] 500 mg Med 05/27/20 09:15 Ordered Sodium Chloride 0.9% [Normal Saline (AdvBag)] 250 ml IV Q24H Enoxaparin [Lovenox] Med 05/27/20 09:30 Active 40 mg SUBCUT DAILY Folic Acid Med 05/27/20 09:00 Active 1 mg PO DAILY Furosemide [Lasix] Med 05/27/20 09:00 Active 20 mg PO DAILY Magnesium Hydroxide [Milk of Magnesia] Med 05/26/20 19:43 Active 30 ml PO BID PRN Tiotropium [Spiriva HandiHaler] Med 05/27/20 09:00 Active 18 mcg INH DAILY atorvaSTATin [Lipitor] Med 05/26/20 21:00 Active 20 mg PO BEDTIME carvediloL [Coreg] Med 05/27/20 08:00 Active 25 mg PO BIDMEALS cefTRIAXone [Rocephin] Med 05/27/20 17:00 Active 1 gm IVPUSH Q24H lisinopriL [Prinivil] Med 05/27/20 09:00 Active 30 mg PO DAILY Blood Culture x2 Reflex Set [OM.PC] Urgent Oth 05/26/20 16:13 Ordered DVT/VTE Prophylaxis Reflex [OM.PC] Per Unit Routine Oth 05/26/20 19:43 Ordered Isolation [COMM] Routine Oth 05/26/20 15:40 Ordered Resuscitation Status Routine Resus Stat 05/26/20 19:43 Ordered EKG 12 Lead [EK] Routine Ther 05/26/20 19:34 Ordered Medication Orders Acetaminophen (Tylenol) 650 mg PO Q4H PRN PRN Reason: analgesia/fever Albuterol (Ventolin Hfa) 0 gm INH Q4H PRN PRN Reason: Wheezing Albuterol/Ipratropium (Duoneb 3.0-0.5 Mg/3 Ml) 3 ml NEB QID PRN PRN Reason: Cough Last Admin: 05/27/20 05:52 Dose: 3 ml Documented by: Admin: 05/26/20 23:27 Dose: 3 ml Documented by: KERLINE Aspirin (Halfprin) 81 mg PO DAILY COUNT INCLUDES THE [facility] Atorvastatin Calcium (Lipitor) 20 mg PO BEDTIME INGRID Last Admin: 05/26/20 21:59 Dose: 20 mg Documented by: KERLINE Carvedilol (Coreg) 25 mg PO BIDMEALS COUNT INCLUDES THE [facility] Ceftriaxone Sodium (Rocephin) 1 gm IVPUSH Q24H COUNT INCLUDES THE [facility] Enoxaparin Sodium (Lovenox) 40 mg SUBCUT DAILY COUNT INCLUDES THE [facility] Folic Acid (Folic Acid) 1 mg PO DAILY COUNT INCLUDES THE [facility] Furosemide (Lasix) 20 mg PO DAILY COUNT INCLUDES THE [facility] Azithromycin 500 mg/ Sodium (Chloride) 250 mls @ 250 mls/hr IV Q24H COUNT INCLUDES THE [facility] Stop: 05/28/20 10:14 Lisinopril (Prinivil) 30 mg PO DAILY COUNT INCLUDES THE [facility] Magnesium Hydroxide (Milk Of Magnesia) 30 ml PO BID PRN PRN Reason: Constipation Tiotropium [place] (Spiriva Handihaler) 18 mcg INH DAILY COUNT INCLUDES THE [facility]
--- NOTE | 2020-05-27 10:47 | CT ---
INDICATION: Hypoxia, shortness of breath. CT CHEST WITHOUT CONTRAST: Spiral 3.75 mm axial sections were obtained through the chest without contrast in a smoker with one pack per day for 45 years. Sagittal and coronal reconstructions and axial reconstructions were obtained 05/27/20. Findings were compared with chest x-ray from 05/26/20. Total exam DLP was 648.35 mGy-cm. Very minimal calcification is noted in the arch of the aorta and descending thoracic aorta and in coronary arteries. The heart did not appear enlarged. No pericardial effusion was seen. The upper abdominal organs appear fairly normal that are included on the study. There is some minimal patchy infiltration in the left upper lobe. More extensive infiltration is noted in both lower lobes suggesting areas of pneumonia. A viral pneumonia such as COVID-19 would be a consideration. Similar infiltrate is noted somewhat more peripherally also in the middle lobe anteromedially. Minimal pleural reaction is noted with no significant pleural effusions noted. IMPRESSION: 1. Bilateral pneumonia, question the possibility of COVID-19 etiology - correlate clinically. 2. Minimal ASD/ASHD. Report was called to Dr. Weir at 1021 hours. MTDD
[2020-05-27] MEDS: Furosemide 20 MG Tab PO SCH (10:53)
[2020-05-27] MEDS: Aspirin 81 MG Tab.EC PO SCH (10:54)
[2020-05-27] MEDS: Carvedilol 25 MG Tab PO SCH (10:54)
[2020-05-27] MEDS: Folic Acid 1 MG Tab PO SCH (10:54)
[2020-05-27] MEDS: Lisinopril 10 MG Tab PO SCH (10:54)
[2020-05-27] MEDS: Tiotropium Inhaler 18 MCG Inhalation Powder Cap Kit of 5 INH SCH (10:55)
[2020-05-27] MEDS: Enoxaparin 40 MG/0.4 ML Syringe SUBCUT SCH (10:55)
[2020-05-27] MEDS: Sodium Chloride 0.9% 10 ML Syringe FLUSH PRN (17:00)
[2020-05-27] MEDS: cefTRIAXone 1 GM Vial IVPUSH SCH (17:00)
[2020-05-27] MEDS: Azithromycin 500 MG in Sodium Chloride 0.9% 250 ML IV SCH (17:07)
[2020-05-27] MEDS ORDERED: Sodium Chloride 0.9% 1,000 ML IV SCH (18:15)
[2020-05-27] MEDS: atorvaSTATin 20 MG Tab PO SCH (20:01)
[2020-05-27] MEDS: Acetaminophen 325 MG Tab PO PRN (23:24)
--- NOTE | 2020-05-28 08:52 | PCM.PN ---
- General Info Date of Service: 05/28/20 Admission Dx/Problem (Free Text): Acute hypoxic respiratory failure, COPD exacerbation, heart failure with reduced ejection fraction Admission Diagnosis/Problem Admission Diagnosis/Problem Shortness of breath Subjective Update: Patient had hypotension last evening at approximately 1800. Patient was given normal saline at 75 mL/h overnight, 1 L total. Lactic acid was normal. This morning patient states that he is still very tired and very fatigued and that he does not feel like doing anything but he does feel like he is breathing better even though he can hear himself wheezing. Blood pressure has normalized Functional Status: Reports: Pain Controlled, Tolerating Diet, Ambulating, Urinating - Review of Systems General: Reports: Weakness, Fatigue, Malaise HEENT: Reports: No Symptoms Pulmonary: Reports: Shortness of Breath, Cough, Sputum, Wheezing Cardiovascular: Reports: Dyspnea on Exertion, Orthopnea, PND, Edema Gastrointestinal: Reports: No Symptoms Genitourinary: Reports: No Symptoms Musculoskeletal: Reports: No Symptoms Skin: Reports: No Symptoms Neurological: Reports: No Symptoms Psychiatric: Reports: No Symptoms - Patient Data Vitals - Most Recent: Last Vital Signs Temp 36.7 C 05/28/20 07:45 Pulse 98 05/28/20 07:45 Resp 20 05/28/20 07:45 BP 113/74 05/28/20 07:45 Pulse Ox 93 L 05/28/20 07:45 Weight - Most Recent: 98.911 kg I&O - Last 24 Hours: Intake & Output 05/27/20 05/28/20 05/28/20 22:59 06:59 14:59 Intake Total 350 1340 60 Output Total 700 350 Balance -350 990 60 Lab Results Last 24 Hours: Laboratory Results - last 24 hr 05/27/20 05/28/20 Range/Units 17:51 06:25 WBC 13.5 H (3.2-10.1) x10-3/uL RBC 4.29 (3.90-5.90) x10(6)uL Hgb 14.3 (12.9-17.7) g/dL Hct 43.3 (38.3-50.1) % MCV 100.8 H (80.8-98.7) fL MCH 33.3 (27.0-33.3) pg MCHC 33.1 (28.7-35.3) g/dL RDW 13.2 (12.4-15.0) % Plt Count 220 (117-477) x10(3)uL MPV 8.5 (6.7-11.0) fL Neut % (Auto) 77.7 H (40.3-71.8) % Lymph % (Auto) 15.0 L (15.8-45.3) % [place] % (Auto) 6.1 (5.5-15.2) % Eos % (Auto) 0.9 (0.1-6.8) % Baso % (Auto) 0.3 (0.3-3.8) % Neut # (Auto) 10.5 H (1.7-6.9) x10-3/uL Lymph # (Auto) 2.0 (0.5-4.5) x10-3/uL [place] # (Auto) 0.8 (0.0-1.2) x10-3/uL Eos # (Auto) 0.1 (0.0-0.6) x10-3/uL Baso # (Auto) 0.0 (0.0-0.3) x10-3/uL Lactic Acid 1.1 (0.4-2.0) mmol/L Marcin Results Last 24 Hours: Microbiology 05/26/20 16:50 Aerobic Blood Culture - Preliminary Blood - Venous NO GROWTH AFTER 1 DAY Anaerobic Blood Culture - Preliminary NO GROWTH AFTER 1 DAY 05/26/20 16:55 Aerobic Blood Culture - Preliminary Blood - Venous - Lab Draw NO GROWTH AFTER 1 DAY Anaerobic Blood Culture - Preliminary NO GROWTH AFTER 1 DAY Med Orders - Current: Current Medications Acetaminophen (Tylenol) 650 mg PO Q4H PRN PRN Reason: analgesia/fever Last Admin: 05/27/20 23:24 Dose: 650 mg Documented by: Albuterol (Ventolin Hfa) 0 gm INH Q4H PRN PRN Reason: Wheezing Albuterol/Ipratropium (Duoneb 3.0-0.5 Mg/3 Ml) 3 ml NEB QID PRN PRN Reason: Cough Last Admin: 05/27/20 23:26 Dose: 3 ml Documented by: Aspirin (Halfprin) 81 mg PO DAILY [facility] Last Admin: 05/27/20 10:54 Dose: 81 mg Documented by: Atorvastatin Calcium (Lipitor) 20 mg PO BEDTIME [facility] Last Admin: 05/27/20 20:01 Dose: 20 mg Documented by: Carvedilol (Coreg) 25 mg PO BIDMEALS [facility] Last Admin: 05/27/20 10:54 Dose: 25 mg Documented by: Ceftriaxone Sodium (Rocephin) 1 gm IVPUSH Q24H [facility] Last Admin: 05/27/20 17:00 Dose: 1 gm Documented by: Enoxaparin Sodium (Lovenox) 40 mg SUBCUT DAILY [facility] Last Admin: 05/27/20 10:55 Dose: 40 mg Documented by: Folic Acid (Folic Acid) 1 mg PO DAILY [facility] Last Admin: 05/27/20 10:54 Dose: 1 mg Documented by: Furosemide (Lasix) 20 mg PO DAILY [facility] Last Admin: 05/27/20 10:53 Dose: 20 mg Documented by: Azithromycin 500 mg/ Sodium (Chloride) 250 mls @ 250 mls/hr IV Q24H [facility] Stop: 05/28/20 17:59 Last Admin: 05/27/20 17:07 Dose: 250 mls/hr Documented by: Lisinopril (Prinivil) 30 mg PO DAILY [facility] Last Admin: 05/27/20 10:54 Dose: 30 mg Documented by: Magnesium Hydroxide (Milk Of Magnesia) 30 ml PO BID PRN PRN Reason: Constipation Prednisone (Prednisone) 40 mg PO WITHBREAKFAST [facility] Stop: 06/01/20 08:44 Sodium Chloride (Saline Flush) 10 ml FLUSH ASDIRECTED PRN PRN Reason: flush med Last Admin: 05/27/20 17:00 Dose: 10 ml Documented by: Tiotropium [place] (Spiriva Handihaler) 18 mcg INH DAILY [facility] Last Admin: 05/27/20 10:55 Dose: 1 cap Documented by: Discontinued Medications Acetaminophen (Tylenol Extra Strength) 1,000 mg PO ONETIME ONE Stop: 05/26/20 16:16 Last Admin: 05/26/20 16:25 Dose: 1,000 mg Documented by: Carvedilol (Coreg) 25 mg PO BID [facility] Last Admin: 05/27/20 06:15 Dose: Not Given Documented by: Carvedilol (Coreg) 25 mg PO ONETIME ONE Stop: 05/26/20 22:01 Last Admin: 05/26/20 21:59 Dose: 25 mg Documented by: Furosemide (Lasix) 20 mg PO DAILY [facility] Guaifenesin (Mucinex) 600 mg PO ONETIME ONE Stop: 05/26/20 16:19 Last Admin: 05/26/20 16:25 Dose: 600 mg Documented by: Ceftriaxone Sodium 1 gm/ (Sodium Chloride) 50 mls @ 200 mls/hr IV ONETIME ONE Stop: 05/26/20 17:21 Last Admin: 05/26/20 17:22 Dose: 200 mls/hr Documented by: Azithromycin 500 mg/ Sodium (Chloride) 250 mls @ 250 mls/hr IV ONETIME ONE Stop: 05/26/20 18:07 Last Admin: 05/26/20 17:50 Dose: 250 mls/hr Documented by: Sodium Chloride (Normal Saline) 1,000 mls @ 75 mls/hr IV ASDIRECTED [facility] Last Admin: 05/27/20 18:14 Dose: 75 mls/hr Documented by: Tiotropium [place] (Spiriva Handihaler) 18 mcg INH DAILY PRN PRN Reason: Shortness of Breath - Exam Quality Assessment: Supplemental Oxygen, DVT Prophylaxis General: Alert, Oriented, Cooperative, No Acute Distress Lungs: Decreased Breath Sounds, Crackles, Wheezing Cardiovascular: Regular Rate, Regular Rhythm GI/Abdominal Exam: Normal Bowel Sounds, Non-Tender Extremities: Normal Capillary Refill, Pedal Edema Skin: Warm, Dry, Intact Neurological: No New Focal Deficit Psy/Mental Status: Alert, Normal Affect, Normal Mood Sepsis Event Note - Evaluation Sepsis Screening Result: Sepsis Risk Current Stage of Sepsis: Ruled Out Reason for Ruling Out Sepsis: Lactic acid normal hypotension resolved Possible Source of Sepsis: Pulmonary - Focused Exam Vital Signs: Vital Signs Temp Pulse Pulse Resp BP Pulse Ox Pulse Ox 05/28/20 07:45 36.7 C 98 20 113/74 93 L 05/28/20 04:00 37.4 C 93 18 124/62 96 05/27/20 23:40 36.7 C 93 18 108/62 96 05/27/20 23:26 93 96 96 Respiratory Effort Without Exertion: Orthopnea Heart Sounds: Distant Capillary Refill, Detail: Less than/Equal to (</=) 2 Seconds Pulse Description: 2+ Normal Peripheral Pulse Location: Dorsalis Pedis - Problem List & Annotations (1) Leukocytosis SNOMED Code(s): 785301006, 431701250 Code(s): D72.829 - ELEVATED WHITE BLOOD CELL COUNT, UNSPECIFIED Status: Acute Priority: High Current Visit: Yes Qualifiers: Leukocytosis type: lymphocytosis Qualified Code(s): D72.820 - Lymphocytosis (symptomatic) (2) Heart failure with reduced ejection fraction SNOMED Code(s): 469558682 Code(s): I50.20 - UNSPECIFIED SYSTOLIC (CONGESTIVE) HEART FAILURE Status: Acute Priority: Low Current Visit: Yes (3) Bilateral lower extremity edema SNOMED Code(s): 810300345, 64933947, 054410596 Code(s): R60.0 - LOCALIZED EDEMA Status: Acute Priority: Medium Current Visit: Yes (4) Pneumonia SNOMED Code(s): 103740798 Code(s): J18.9 - PNEUMONIA, UNSPECIFIED ORGANISM Status: Acute Priority: High Current Visit: Yes Qualifiers: Pneumonia type: due to unspecified organism Laterality: bilateral Lung location: lower lobe of lung Qualified Code(s): J18.9 - Pneumonia, unspecified organism - Problem List Review Problem List Initiated/Reviewed/Updated: Yes - My Orders Last 24 Hours: My Active Orders 05/27/20 08:38 Echo Comp w Cont [US] Routine 05/27/20 09:30 Enoxaparin [Lovenox] 40 mg SUBCUT DAILY 05/27/20 10:00 RT Communication [RC] Click to Edit 05/27/20 Dinner Cardiac Diet [Heart Healthy Diet] [DIET] 05/27/20 17:00 Azithromycin [Zithromax] 500 mg Sodium Chloride 0.9% [Normal Saline (AdvBag)] 250 ml IV Q24H Sodium Chloride 0.9% [Saline Flush] 10 ml FLUSH ASDIRECTED PRN 05/28/20 07:56 Convert IV to Saline Lock [OM.PC] Routine 05/28/20 08:16 Incentive Breathing [RT Incentive Spirometry] [RC] Q2HR 05/28/20 08:43 predniSONE 40 mg PO WITHBREAKFAST - Assessment Assessment:: 1. Bilateral pneumonia; 2. Acute hypoxic respiratory failure; 3. Acute exacerbation of COPD; 4. Continued dependence on cigarette smoking; 5. Hypertension; 6. Bilateral lower extremity edema; 7. Leukocytosis; 8. Elevated troponinsresolved; 9. History of heart failure with reduced ejection fractionresolved - Plan Plan:: Patient had an episode of hypotension last night, recheck of blood pressure showed approximately 100/59, lactic acid was normal, started patient on 75 ml/h normal saline for a total of 1000 mL. Hypotension has resolved and leukocytosis is improving. Patient appears to continue to improve. Continue antibiotic treatment, Acapella, add incentive spirometer and prednisone. Patient encouraged to use incentive spirometer every commercial and to take several walking laps around the unit throughout the day. Hopeful that if the patient's breathing continues to improve may be discharged tomorrow afternoon after IV Rocephin is given.
[2020-05-28] MEDS: Tiotropium Inhaler 18 MCG Inhalation Powder Cap Kit of 5 INH SCH (09:02)
[2020-05-28] MEDS: Folic Acid 1 MG Tab PO SCH (09:04)
[2020-05-28] MEDS: Furosemide 20 MG Tab PO SCH (09:04)
[2020-05-28] MEDS: Aspirin 81 MG Tab.EC PO SCH (09:04)
[2020-05-28] MEDS: Lisinopril 10 MG Tab PO SCH (09:04)
[2020-05-28] MEDS: Carvedilol 25 MG Tab PO SCH ×2 (09:05→18:20)
[2020-05-28] MEDS: Enoxaparin 40 MG/0.4 ML Syringe SUBCUT SCH (09:06)
[2020-05-28] MEDS: predniSONE 20 MG Tab PO SCH (09:12)
[2020-05-28] MEDS: Acetaminophen 325 MG Tab PO PRN (09:14)
[2020-05-28] MEDS: guaiFENesin 600 MG Tab.ER PO PRN (09:49)
[2020-05-28] MEDS: Sodium Chloride 0.9% 10 ML Syringe FLUSH PRN (16:49)
[2020-05-28] MEDS: cefTRIAXone 1 GM Vial IVPUSH SCH (16:50)
[2020-05-28] MEDS: Azithromycin 500 MG in Sodium Chloride 0.9% 250 ML IV SCH (16:54)
[2020-05-28] MEDS: atorvaSTATin 20 MG Tab PO SCH (20:00)
[2020-05-29] MEDS: Acetaminophen 325 MG Tab PO PRN ×2 (03:20→09:16)
[2020-05-29] MEDS: Carvedilol 25 MG Tab PO SCH ×2 (09:17→17:53)
[2020-05-29] MEDS: Aspirin 81 MG Tab.EC PO SCH (09:18)
[2020-05-29] MEDS: Folic Acid 1 MG Tab PO SCH (09:18)
[2020-05-29] MEDS: Furosemide 20 MG Tab PO SCH (09:18)
[2020-05-29] MEDS: Lisinopril 10 MG Tab PO SCH (09:19)
[2020-05-29] MEDS: Tiotropium Inhaler 18 MCG Inhalation Powder Cap Kit of 5 INH SCH (09:19)
[2020-05-29] MEDS: Enoxaparin 40 MG/0.4 ML Syringe SUBCUT SCH (09:21)
[2020-05-29] MEDS: guaiFENesin 600 MG Tab.ER PO PRN (09:25)
[2020-05-29] MEDS: predniSONE 20 MG Tab PO SCH (09:28)
[2020-05-29] MEDS ORDERED: Magnesium Citrate Solution 296 ML Bottle PO ONE (10:17)
[2020-05-29] MEDS ORDERED: Camphor/Menthol 0.5-0.5% Lotion 222 ML Bottle TOP PRN (11:54)
--- NOTE | 2020-05-29 12:11 | PCM.PN ---
- General Info Date of Service: 05/29/20 Admission Dx/Problem (Free Text): Acute hypoxic respiratory failure, COPD exacerbation, heart failure with reduced ejection fraction Admission Diagnosis/Problem Admission Diagnosis/Problem Shortness of breath Subjective Update: Patient states that he is not sleeping well at all because of being uncomfortable in the hospital and he wants to go home. Complains of a small patch of dry skin on his forehead and states that he will get this rash from time to time and treats it at home with camphor solution with good results. He complained of some constipation this morning but states that he does not feel like he has a lump in his stomach and does not have any significant abdominal pain. He thinks that his breathing has improved but not much. Functional Status: Reports: Pain Controlled, Tolerating Diet, Ambulating, Urinating - Review of Systems General: Reports: Fatigue, Malaise HEENT: Reports: No Symptoms Pulmonary: Reports: Shortness of Breath, Cough, Sputum, Wheezing Cardiovascular: Reports: Orthopnea, PND, Edema Gastrointestinal: Reports: Constipation Genitourinary: Reports: No Symptoms Musculoskeletal: Reports: No Symptoms Skin: Reports: Rash Neurological: Reports: No Symptoms Psychiatric: Reports: No Symptoms - Patient Data Vitals - Most Recent: Last Vital Signs Temp 36.6 C 05/29/20 07:25 Pulse 80 05/29/20 09:17 Resp 22 H 05/29/20 07:25 BP 111/71 05/29/20 09:19 Pulse Ox 93 L 05/29/20 07:25 Weight - Most Recent: 98.911 kg I&O - Last 24 Hours: Intake & Output 05/28/20 05/29/20 05/29/20 22:59 06:59 14:59 Intake Total 250 Balance 250 Marcin Results Last 24 Hours: Microbiology 05/26/20 16:50 Aerobic Blood Culture - Preliminary Blood - Venous NO GROWTH AFTER 2 DAYS Anaerobic Blood Culture - Preliminary NO GROWTH AFTER 2 DAYS 05/26/20 16:55 Aerobic Blood Culture - Preliminary Blood - Venous - Lab Draw NO GROWTH AFTER 2 DAYS Anaerobic Blood Culture - Preliminary NO GROWTH AFTER 2 DAYS Med Orders - Current: Current Medications Acetaminophen (Tylenol) 650 mg PO Q4H PRN PRN Reason: analgesia/fever Last Admin: 05/29/20 09:16 Dose: 650 mg Documented by: Albuterol (Ventolin Hfa) 0 gm INH Q4H PRN PRN Reason: Wheezing Albuterol/Ipratropium (Duoneb 3.0-0.5 Mg/3 Ml) 3 ml NEB QID PRN PRN Reason: Cough Last Admin: 05/27/20 23:26 Dose: 3 ml Documented by: Aspirin (Halfprin) 81 mg PO DAILY [facility] Last Admin: 05/29/20 09:18 Dose: 81 mg Documented by: Atorvastatin Calcium (Lipitor) 20 mg PO BEDTIME [facility] Last Admin: 05/28/20 20:00 Dose: 20 mg Documented by: Camphor/Menthol (Sarna Lotion) 0 ml TOP Q1H PRN PRN Reason: Rash Carvedilol (Coreg) 25 mg PO BIDMEALS [facility] Last Admin: 05/29/20 09:17 Dose: 25 mg Documented by: Ceftriaxone Sodium (Rocephin) 1 gm IVPUSH Q24H [facility] Last Admin: 05/28/20 16:50 Dose: 1 gm Documented by: Enoxaparin Sodium (Lovenox) 40 mg SUBCUT DAILY [facility] Last Admin: 05/29/20 09:21 Dose: 40 mg Documented by: Folic Acid (Folic Acid) 1 mg PO DAILY [facility] Last Admin: 05/29/20 09:18 Dose: 1 mg Documented by: Furosemide (Lasix) 20 mg PO DAILY [facility] Last Admin: 05/29/20 09:18 Dose: 20 mg Documented by: Guaifenesin (Mucinex) 1,200 mg PO BID PRN PRN Reason: cough Last Admin: 05/29/20 09:25 Dose: 1,200 mg Documented by: Lisinopril (Prinivil) 10 mg PO DAILY [facility] Last Admin: 05/29/20 09:19 Dose: 10 mg Documented by: Magnesium Hydroxide (Milk Of Magnesia) 30 ml PO BID PRN PRN Reason: Constipation Prednisone (Prednisone) 40 mg PO WITHBREAKFAST [facility] Stop: 06/01/20 08:44 Last Admin: 05/29/20 09:28 Dose: 40 mg Documented by: Sodium Chloride (Saline Flush) 10 ml FLUSH ASDIRECTED PRN PRN Reason: flush med Last Admin: 05/28/20 16:49 Dose: 10 ml Documented by: Tiotropium [place] (Spiriva Handihaler) 18 mcg INH DAILY [facility] Last Admin: 05/29/20 09:19 Dose: 18 cap Documented by: Discontinued Medications Acetaminophen (Tylenol Extra Strength) 1,000 mg PO ONETIME ONE Stop: 05/26/20 16:16 Last Admin: 05/26/20 16:25 Dose: 1,000 mg Documented by: Carvedilol (Coreg) 25 mg PO BID [facility] Last Admin: 05/27/20 06:15 Dose: Not Given Documented by: Carvedilol (Coreg) 25 mg PO ONETIME ONE Stop: 05/26/20 22:01 Last Admin: 05/26/20 21:59 Dose: 25 mg Documented by: Furosemide (Lasix) 20 mg PO DAILY [facility] Guaifenesin (Mucinex) 600 mg PO ONETIME ONE Stop: 05/26/20 16:19 Last Admin: 05/26/20 16:25 Dose: 600 mg Documented by: Ceftriaxone Sodium 1 gm/ (Sodium Chloride) 50 mls @ 200 mls/hr IV ONETIME ONE Stop: 05/26/20 17:21 Last Admin: 05/26/20 17:22 Dose: 200 mls/hr Documented by: Azithromycin 500 mg/ Sodium (Chloride) 250 mls @ 250 mls/hr IV ONETIME ONE Stop: 05/26/20 18:07 Last Admin: 05/26/20 17:50 Dose: 250 mls/hr Documented by: Azithromycin 500 mg/ Sodium (Chloride) 250 mls @ 250 mls/hr IV Q24H [facility] Stop: 05/28/20 17:59 Last Admin: 05/28/20 16:54 Dose: 250 mls/hr Documented by: Sodium Chloride (Normal Saline) 1,000 mls @ 75 mls/hr IV ASDIRECTED [facility] Last Admin: 05/27/20 18:14 Dose: 75 mls/hr Documented by: Lisinopril (Prinivil) 30 mg PO DAILY [facility] Last Admin: 05/28/20 09:04 Dose: 30 mg Documented by: Magnesium Citrate (Citrate Of Magnesia) 296 ml PO ONETIME ONE Stop: 05/29/20 10:18 Last Admin: 05/29/20 10:38 Dose: 296 ml Documented by: Tiotropium [place] (Spiriva Handihaler) 18 mcg INH DAILY PRN PRN Reason: Shortness of Breath - Exam Quality Assessment: Supplemental Oxygen, DVT Prophylaxis General: Alert, Oriented Lungs: Decreased Breath Sounds, Wheezing Cardiovascular: Regular Rate, Regular Rhythm GI/Abdominal Exam: Normal Bowel Sounds, Distended. No: Guarding, Rigid, Tender Back Exam: Normal Inspection Extremities: Pedal Edema Skin: Rash Neurological: No New Focal Deficit Psy/Mental Status: Alert, Normal Affect Sepsis Event Note - Evaluation Sepsis Screening Result: Sepsis Risk - Focused Exam Vital Signs: Vital Signs Temp Pulse Pulse Resp BP BP Pulse Ox 05/29/20 09:19 111/71 05/29/20 09:17 80 111/71 05/29/20 07:25 36.6 C 80 22 H 111/71 93 L 05/29/20 06:56 93 L 05/29/20 04:00 36.4 C 83 18 109/68 91 L - Problem List & Annotations (1) Leukocytosis SNOMED Code(s): 961052545, 333310074 Code(s): D72.829 - ELEVATED WHITE BLOOD CELL COUNT, UNSPECIFIED Status: Acute Priority: High Current Visit: Yes Qualifiers: Leukocytosis type: lymphocytosis Qualified Code(s): D72.820 - Lymphocytosis (symptomatic) (2) Heart failure with reduced ejection fraction SNOMED Code(s): 378939414 Code(s): I50.20 - UNSPECIFIED SYSTOLIC (CONGESTIVE) HEART FAILURE Status: Acute Priority: Low Current Visit: Yes (3) Bilateral lower extremity edema SNOMED Code(s): 419625283, 38580658, 599449901 Code(s): R60.0 - LOCALIZED EDEMA Status: Acute Priority: Medium Current Visit: Yes (4) Pneumonia SNOMED Code(s): 476499041 Code(s): J18.9 - PNEUMONIA, UNSPECIFIED ORGANISM Status: Acute Priority: High Current Visit: Yes Qualifiers: Pneumonia type: due to unspecified organism Laterality: bilateral Lung location: lower lobe of lung Qualified Code(s): J18.9 - Pneumonia, unspecified organism - Problem List Review Problem List Initiated/Reviewed/Updated: Yes - My Orders Last 24 Hours: My Active Orders 05/29/20 09:00 lisinopriL [Prinivil] 10 mg PO DAILY 05/29/20 11:54 Camphor/Menthol [Sarna Lotion] 2 ml TOP Q1H PRN - Assessment Assessment:: 1. Bilateral pneumonia; 2. Acute hypoxic respiratory failure; 3. Acute exacerbation of COPD; 4. Continued dependence on cigarette smoking; 5. Hypertension; 6. Bilateral lower extremity edema; 7. Leukocytosis; 8. Elevated troponinsresolved; 9. History of heart failure with reduced ejection fractionresolved - Plan Plan:: Patient continues to show mild improvement with breathing. Patient continued to have short episodes of hypotension. Patient will only receive 10 mg of lisinopril today and we will reevaluate blood pressure medications/efficacy tomorrow morning. Repeat CBC in the morning to trend white blood cell/leukocytosis. Patient has a small area of dry skin on his right forehead which we will treat with camphor and reevaluate tomorrow. I will also give him an additional 20 mg of Lasix p.o. today and reevaluate edema tomorrow morning. We will have a 6-minute walk test tomorrow and patient will likely be discharged home with supplemental oxygen tomorrow.
[2020-05-29] MEDS ORDERED: Furosemide 20 MG Tab PO ONE (12:17)
[2020-05-29] MEDS: Albuterol/Ipratropium 3.0-0.5 MG/3 ML Neb Soln NEB PRN ×2 (14:18→23:26)
[2020-05-29] MEDS: Sodium Chloride 0.9% 10 ML Syringe FLUSH PRN (16:50)
[2020-05-29] MEDS: cefTRIAXone 1 GM Vial IVPUSH SCH (16:50)
[2020-05-29] MEDS: atorvaSTATin 20 MG Tab PO SCH (20:40)
[2020-05-30] MEDS: Acetaminophen 325 MG Tab PO PRN (03:58)
[2020-05-30] MEDS: Carvedilol 25 MG Tab PO SCH (08:05)
[2020-05-30] MEDS: Lisinopril 10 MG Tab PO SCH (08:06)
[2020-05-30] MEDS: Aspirin 81 MG Tab.EC PO SCH (08:06)
[2020-05-30] MEDS: Folic Acid 1 MG Tab PO SCH (08:06)
[2020-05-30] MEDS: Tiotropium Inhaler 18 MCG Inhalation Powder Cap Kit of 5 INH SCH (08:06)
[2020-05-30] MEDS: Enoxaparin 40 MG/0.4 ML Syringe SUBCUT SCH (08:06)
[2020-05-30] MEDS: Furosemide 20 MG Tab PO SCH (08:06)
[2020-05-30 08:09] VITALS: BP 140/87; PULSE 72
[2020-05-30] MEDS: predniSONE 20 MG Tab PO SCH (08:41)
--- NOTE | 2020-05-30 11:05 | PCM.DCSUM1 ---
Discharge Summary - Hospital Course Free Text/Narrative:: Patient was admitted for increased cough with increased sputum production, shortness of breath, dyspnea on exertion, chest tightness, weakness. He was found to be in acute hypoxic respiratory failure. CT scan of the chest showed multiple areas concerning for pneumonia. Patient was treated with IV antibiotics, fluid resuscitation, and for COPD exacerbation which included treatment with supplemental oxygen, steroids, Acapella, incentive spirometer. Patient exhibited signs of mild dehydration and was treated with IV fluid replacement which restored hypotension. He was found to have oxygen desaturation with minimal exercise and will be sent home with supplemental oxygen. The patient's breathing and oxygenation have improved significantly over the course of stay and he is ready for discharge home to complete treatment. - Discharge Data Discharge Date: 05/30/20 Discharge Disposition: Home, Self-Care 01 Condition: Fair - Referral to Home Health Primary Care Physician: Rodrigo Burr MD - Discharge Diagnosis/Problem(s) (1) Leukocytosis SNOMED Code(s): 055426939, 154302368 ICD Code: D72.829 - ELEVATED WHITE BLOOD CELL COUNT, UNSPECIFIED Status: Acute Priority: High Current Visit: Yes Qualifiers: Leukocytosis type: lymphocytosis Qualified Code(s): D72.820 - Lymphocytosis (symptomatic) (2) Heart failure with reduced ejection fraction SNOMED Code(s): 045346913 ICD Code: I50.20 - UNSPECIFIED SYSTOLIC (CONGESTIVE) HEART FAILURE Status: Acute Priority: Low Current Visit: Yes (3) Bilateral lower extremity edema SNOMED Code(s): 097527017, 21901280, 246127876 ICD Code: R60.0 - LOCALIZED EDEMA Status: Acute Priority: Medium Current Visit: Yes (4) Pneumonia SNOMED Code(s): 063072961 ICD Code: J18.9 - PNEUMONIA, UNSPECIFIED ORGANISM Status: Acute Priority: High Current Visit: Yes Qualifiers: Pneumonia type: due to unspecified organism Laterality: bilateral Lung location: lower lobe of lung Qualified Code(s): J18.9 - Pneumonia, unspecified organism (5) Acute exacerbation of chronic obstructive airways disease SNOMED Code(s): 612117988 ICD Code: J44.1 - CHRONIC OBSTRUCTIVE PULMONARY DISEASE W (ACUTE) EXACERBATION Status: Acute Current Visit: Yes (6) Hypoxemia SNOMED Code(s): 062510809 ICD Code: R09.02 - HYPOXEMIA Status: Acute Current Visit: Yes (7) Acute and chronic respiratory failure with hypoxia SNOMED Code(s): 65880298, 913912049 ICD Code: J96.21 - ACUTE AND CHRONIC RESPIRATORY FAILURE WITH HYPOXIA Status: Acute Current Visit: Yes - Patient Instructions Diet: Heart Healthy Diet Activity: As Tolerated - Discharge Plan *PRESCRIPTION DRUG MONITORING PROGRAM REVIEWED*: Not Applicable *COPY OF PRESCRIPTION DRUG MONITORING REPORT IN PATIENT SIMIN: Not Applicable Prescriptions/Med Rec: Cefdinir 300 mg PO BID #10 capsule Furosemide [Lasix] 40 mg PO DAILY #60 tab guaiFENesin [Mucinex] 1,200 mg PO BID PRN 30 Days #60 tab.er PRN Reason: cough predniSONE 40 mg PO WITHBREAKFAST 3 Days tablet Home Medications: Home Meds Albuterol [Ventolin HFA] 2 puff INH Q4HR PRN 09/14/15 [History] Aspirin [Ecotrin EC] 81 mg PO DAILY 06/06/16 [History] Folic Acid 1 mg PO DAILY 06/06/16 [History] Lisinopril 30 mg PO DAILY 06/06/16 [History] Multivitamin [Multi-Day Vitamins] 1 tab PO DAILY 06/06/16 [History] Tiotropium [place] [Spiriva] 18 mcg IH DAILY 06/06/16 [History] carvediloL [Carvedilol] 25 mg PO BID 06/06/16 [History] atorvaSTATin [Lipitor] 20 mg PO BEDTIME 05/26/20 [History] Albuterol [Proventil Neb Soln] 2.5 mg IH QID PRN 05/27/20 [History] Cefdinir 300 mg PO BID #10 capsule 05/30/20 [Rx] Furosemide [Lasix] 40 mg PO DAILY #60 tab 05/30/20 [Rx] guaiFENesin [Mucinex] 1,200 mg PO BID PRN 30 Days #60 tab.er 05/30/20 [Rx] predniSONE 40 mg PO WITHBREAKFAST 3 Days tablet 05/30/20 [Rx] Oxygen Therapy Mode: Nasal Cannula Oxygen Flow Rate (L/min): 2 Patient Handouts: Fever, Adult, Shortness of Breath, Adult, [id number] Forms: ED Department Discharge Referrals: Rodrigo Burr MD [Primary Care Provider] - - Discharge Summary/Plan Comment DC Time >30 min.: Yes (Greater than 30 minutes spent counseling patient/spouse, discharge planning) Discharge Summary/Plan Comment: Patient advised that smoking cessation and the use of supplemental oxygen when indicated are the only 2 actions/treatments that will increase life expectancy. Patient strongly urged to quit smoking, use Acapella and incentive spirometry often, increase physical exercise, follow-up with his primary care physician. Consider PFT and low-dose CT lung cancer screen when patient has recovered from this acute event. - Patient Data Vitals - Most Recent: Last Vital Signs Temp 36.6 C 05/30/20 08:00 Pulse 72 05/30/20 08:05 Resp 16 05/30/20 08:00 BP 140/87 05/30/20 08:06 Pulse Ox 97 05/30/20 08:00 Weight - Most Recent: 100.754 kg YAMIL Results - Last 24 hrs: Microbiology 05/26/20 16:50 Aerobic Blood Culture - Preliminary Blood - Venous NO GROWTH AFTER 3 DAYS Anaerobic Blood Culture - Preliminary NO GROWTH AFTER 3 DAYS 05/26/20 16:55 Aerobic Blood Culture - Preliminary Blood - Venous - Lab Draw NO GROWTH AFTER 3 DAYS Anaerobic Blood Culture - Preliminary NO GROWTH AFTER 3 DAYS Med Orders - Current: Current Medications Acetaminophen (Tylenol) 650 mg PO Q4H PRN PRN Reason: analgesia/fever Last Admin: 05/30/20 03:58 Dose: 650 mg Documented by: Albuterol (Ventolin Hfa) 0 gm INH Q4H PRN PRN Reason: Wheezing Albuterol/Ipratropium (Duoneb 3.0-0.5 Mg/3 Ml) 3 ml NEB QID PRN PRN Reason: Cough Last Admin: 05/29/20 23:26 Dose: 3 ml Documented by: Aspirin (Halfprin) 81 mg PO DAILY [facility] Last Admin: 05/30/20 08:06 Dose: 81 mg Documented by: Atorvastatin Calcium (Lipitor) 20 mg PO BEDTIME [facility] Last Admin: 05/29/20 20:40 Dose: 20 mg Documented by: Camphor/Menthol (Sarna Lotion) 0 ml TOP Q1H PRN PRN Reason: Rash Last Admin: 05/29/20 13:05 Dose: 1 applic Documented by: Carvedilol (Coreg) 25 mg PO BIDMEALS [facility] Last Admin: 05/30/20 08:05 Dose: 25 mg Documented by: Ceftriaxone Sodium (Rocephin) 1 gm IVPUSH Q24H [facility] Last Admin: 05/29/20 16:50 Dose: 1 gm Documented by: Enoxaparin Sodium (Lovenox) 40 mg SUBCUT DAILY [facility] Last Admin: 05/30/20 08:06 Dose: 40 mg Documented by: Folic Acid (Folic Acid) 1 mg PO DAILY [facility] Last Admin: 05/30/20 08:06 Dose: 1 mg Documented by: Furosemide (Lasix) 20 mg PO DAILY [facility] Last Admin: 05/30/20 08:06 Dose: 20 mg Documented by: Guaifenesin (Mucinex) 1,200 mg PO BID PRN PRN Reason: cough Last Admin: 05/29/20 09:25 Dose: 1,200 mg Documented by: Lisinopril (Prinivil) 10 mg PO DAILY [facility] Last Admin: 05/30/20 08:06 Dose: 10 mg Documented by: Magnesium Hydroxide (Milk Of Magnesia) 30 ml PO BID PRN PRN Reason: Constipation Prednisone (Prednisone) 40 mg PO WITHBREAKFAST [facility] Stop: 06/01/20 08:44 Last Admin: 05/30/20 08:41 Dose: 40 mg Documented by: Sodium Chloride (Saline Flush) 10 ml FLUSH ASDIRECTED PRN PRN Reason: flush med Last Admin: 05/29/20 16:50 Dose: 10 ml Documented by: Tiotropium [place] (Spiriva Handihaler) 18 mcg INH DAILY [facility] Last Admin: 05/30/20 08:06 Dose: 1 cap Documented by: Discontinued Medications Acetaminophen (Tylenol Extra Strength) 1,000 mg PO ONETIME ONE Stop: 05/26/20 16:16 Last Admin: 05/26/20 16:25 Dose: 1,000 mg Documented by: Carvedilol (Coreg) 25 mg PO BID [facility] Last Admin: 05/27/20 06:15 Dose: Not Given Documented by: Carvedilol (Coreg) 25 mg PO ONETIME ONE Stop: 05/26/20 22:01 Last Admin: 05/26/20 21:59 Dose: 25 mg Documented by: Furosemide (Lasix) 20 mg PO DAILY [facility] Furosemide (Lasix) 20 mg PO ONETIME ONE Stop: 05/29/20 12:18 Last Admin: 05/29/20 12:49 Dose: 20 mg Documented by: Guaifenesin (Mucinex) 600 mg PO ONETIME ONE Stop: 05/26/20 16:19 Last Admin: 05/26/20 16:25 Dose: 600 mg Documented by: Ceftriaxone Sodium 1 gm/ (Sodium Chloride) 50 mls @ 200 mls/hr IV ONETIME ONE Stop: 05/26/20 17:21 Last Admin: 05/26/20 17:22 Dose: 200 mls/hr Documented by: Azithromycin 500 mg/ Sodium (Chloride) 250 mls @ 250 mls/hr IV ONETIME ONE Stop: 05/26/20 18:07 Last Admin: 05/26/20 17:50 Dose: 250 mls/hr Documented by: Azithromycin 500 mg/ Sodium (Chloride) 250 mls @ 250 mls/hr IV Q24H [facility] Stop: 05/28/20 17:59 Last Admin: 05/28/20 16:54 Dose: 250 mls/hr Documented by: Sodium Chloride (Normal Saline) 1,000 mls @ 75 mls/hr IV ASDIRECTED [facility] Last Admin: 05/27/20 18:14 Dose: 75 mls/hr Documented by: Lisinopril (Prinivil) 30 mg PO DAILY [facility] Last Admin: 05/28/20 09:04 Dose: 30 mg Documented by: Magnesium Citrate (Citrate Of Magnesia) 296 ml PO ONETIME ONE Stop: 05/29/20 10:18 Last Admin: 05/29/20 10:38 Dose: 296 ml Documented by: Tiotropium [place] (Spiriva Handihaler) 18 mcg INH DAILY PRN PRN Reason: Shortness of Breath *Q Meaningful Use (DIS) - VTE *Q VTE Mechanical Contraindications *Q: Bilateral Lower Edema - Stroke *Q Antithrombotic Contraindications Stroke *Q: Med/TX Not Indicated/Need
== END 2020-05-30 12:15 | disposition home or self-care (01) | DRG 139 ==
LOC: FB.ED 15:27 → FB.MS 19:56
PROVIDERS: ADMIT Family Medicine; ATTEND Student in an Organized Health Care Education/Training Program
DX: J18.9 Pneumonia, unspecified organism (principal); J96.01 Acute respiratory failure with hypoxia; J44.1 Chronic obstructive pulmonary disease with (acute) exacerbation; J44.0 Chronic obstructive pulmonary disease with (acute) lower respiratory infection; E86.0 Dehydration; I95.9 Hypotension, unspecified; F17.210 Nicotine dependence, cigarettes, uncomplicated; I25.10 Atherosclerotic heart disease of native coronary artery without angina pectoris; H54.7 Unspecified visual loss; I11.0 Hypertensive heart disease with heart failure; I50.20 Unspecified systolic (congestive) heart failure; K21.9 Gastro-esophageal reflux disease without esophagitis; F41.9 Anxiety disorder, unspecified; Z20.822 Contact with and (suspected) exposure to COVID-19; I25.2 Old myocardial infarction; Z87.440 Personal history of urinary (tract) infections; Z86.73 Personal history of transient ischemic attack (TIA), and cerebral infarction without residual deficits; Z90.89 Acquired absence of other organs; Z98.890 Other specified postprocedural states; Z98.52 Vasectomy status
CPT/HCPCS: 36415; 71046; 71250; 80048; 80053; 81001; 83605; 83880; 84484; 85025; 85379; 85610; 86140; 87040; 87804; 87804-59; 93005; 94150; 94640; 96365; 96375; 99222; 99232; 99239; 99285; 99285-25; A9270-GY; C8929; J0456; J0696; J1650; J7030; J7050; J7512; J7620-GY; U0002

== ENCOUNTER 2020-07-06 16:02 | Emergency (ER) | payer BC, MEDICARE ==
[2020-07-06] MEDS ORDERED: Azithromycin 250 MG Tab PO ONE (16:03)
[2020-07-06] MEDS ORDERED: Sodium Chloride 0.9% 10 ML Syringe FLUSH PRN (16:13)
--- NOTE | 2020-07-06 16:57 | CR ---
INDICATION: Dyspnea. CHEST ONE VIEW: An AP portable upright view of the chest was obtained 07/06/20 and compared with 06/06/16 and 05/26/20. The heart remains normal in size and shape. The aorta is minimally tortuous. Pulmonary markings are similar to the previous examination without a definite active infiltrate or effusion. The lungs appear to be somewhat hyperaerated which raises question of obstructive airway disease or COPD - correlate clinically. A mild dextroconcave scoliosis of the upper middle thoracic spine is noted with hypertrophic degenerative changes of vertebral bodies in the mid to lower thoracic spine. IMPRESSION: 1. No definite acute process. 2. Probable ASD aorta. 3. Suggestion of mild COPD. 4. DJD and mild scoliosis spine. MTDD
[2020-07-06] MEDS ORDERED: Albuterol/Ipratropium 3.0-0.5 MG/3 ML Neb Soln NEB STA (17:13)
[2020-07-06] MEDS ORDERED: methylPREDNISolone Sodium Succinate 125 MG/2 ML SDV IVPUSH STA (17:14)
--- NOTE | 2020-07-06 17:49 | EDM.PDOC ---
ED HPI GENERAL MEDICAL PROBLEM - General Chief Complaint: Respiratory Problem Stated Complaint: Dyspnea Time Seen by Provider: 07/06/20 16:20 Source of Information: Reports: Patient, Family History Limitations: Reports: No Limitations - History of Present Illness INITIAL COMMENTS - FREE TEXT/NARRATIVE: Patient presented to the ED because of increasing dyspnea for 1 week. He also c/o fatigue. There is no fever,chills, and cough is nothing more than usual. He has a history of COPD and CHF. - Related Data Allergies Allergy/AdvReac Type Severity Reaction Status Date / Time No Known Allergies Allergy Verified 06/06/16 08:40 Home Meds: Home Meds Albuterol [Ventolin HFA] 2 puff INH Q4HR PRN 09/14/15 [History] Aspirin [Ecotrin EC] 81 mg PO DAILY 06/06/16 [History] Folic Acid 1 mg PO DAILY 06/06/16 [History] Lisinopril 30 mg PO DAILY 06/06/16 [History] Multivitamin [Multi-Day Vitamins] 1 tab PO DAILY 06/06/16 [History] Tiotropium [place] [Spiriva] 18 mcg IH DAILY 06/06/16 [History] carvediloL [Carvedilol] 25 mg PO BID 06/06/16 [History] atorvaSTATin [Lipitor] 20 mg PO BEDTIME 05/26/20 [History] Albuterol [Proventil Neb Soln] 2.5 mg IH QID PRN 05/27/20 [History] Cefdinir 300 mg PO BID #10 capsule 05/30/20 [Rx] Furosemide [Lasix] 40 mg PO DAILY #60 tab 05/30/20 [Rx] guaiFENesin [Mucinex] 1,200 mg PO BID PRN 30 Days #60 tab.er 05/30/20 [Rx] predniSONE 40 mg PO WITHBREAKFAST 3 Days tablet 05/30/20 [Rx] predniSONE [Prednisone] 20 mg PO DAILY #30 tablet 07/06/20 [Rx] Past Medical History HEENT History: Reports: None, Epistaxis, Impaired Vision, Otitis Media Cardiovascular History: Reports: CAD, Cardiomyopathy, Heart Failure, Hypertension, [place], SOB on Exertion, Other (See Below) Other Cardiovascular History: Patient states years ago that he ws told by a doctor that he had a murmur. Respiratory History: Reports: Bronchitis, Recurrent, COPD, Pneumonia, Recurrent, SOB Gastrointestinal History: Reports: GERD, PUD Genitourinary History: Reports: None, UTI, Recurrent [employer] History: Reports: None Musculoskeletal History: Reports: Arthritis, Fracture, Other (See Below) Other Musculoskeletal History: SUPRASPINATUS SPRAIN. Patient voiced that he has arthritis in his hands/ fingers., hx fx ankle Neurological History: Reports: TIA Psychiatric History: Reports: Anxiety Endocrine/Metabolic History: Reports: Obesity/BMI 30+ Immunologic History: Reports: None Oncologic (Cancer) History: Reports: None Dermatologic History: Reports: None - Infectious Disease History Infectious Disease History: Reports: Chicken Pox, Measles, Mumps, Scarlet Fever - Past Surgical History Head Surgeries/Procedures: Reports: None HEENT Surgical History: Reports: Oral Surgery, Tonsillectomy Cardiovascular Surgical History: Reports: None Respiratory Surgical History: Reports: None GI Surgical History: Reports: Colonoscopy, EGD Male Surgical History: Reports: Vasectomy Musculoskeletal Surgical History: Reports: Carpal Tunnel Other Musculoskeletal Surgeries/Procedures:: L carpal tunnel surgery Social & Family History - Family History Family Medical History: No Pertinent Family History - Tobacco Use Tobacco Use Status *Q: Current Every Day Tobacco User Years of Tobacco use: 50 Packs/Tins Daily: 2 - Caffeine Use Caffeine Use: Reports: Coffee ED ROS GENERAL - Review of Systems Review Of Systems: See Below Constitutional: Reports: Weakness HEENT: Reports: No Symptoms Respiratory: Reports: Shortness of Breath, Wheezing Cardiovascular: Reports: Chest Pain Endocrine: Reports: No Symptoms GI/Abdominal: Reports: No Symptoms : Reports: No Symptoms Musculoskeletal: Reports: No Symptoms Skin: Reports: No Symptoms Neurological: Reports: No Symptoms Psychiatric: Reports: No Symptoms ED EXAM, GENERAL - Physical Exam Exam: See Below Exam Limited By: No Limitations General Appearance: Alert, No Apparent Distress Ears: Normal External Exam, Normal Canal, Hearing Grossly Normal Nose: Normal Inspection, Normal Mucosa, No Blood Throat/Mouth: Normal Inspection, Normal Lips, Normal Teeth Head: Atraumatic, Normocephalic Neck: Normal Inspection, Supple, Non-Tender, Full Range of Motion Respiratory/Chest: No Respiratory Distress, Lungs Clear, No Accessory Muscle Use, Rhonchi, Wheezing Cardiovascular: Normal Peripheral Pulses, Regular Rate, Rhythm, No Edema, No Gallop, No JVD, No Murmur, No Rub GI/Abdominal: Normal Bowel Sounds, Soft, Non-Tender Back Exam: Normal Inspection, Full Range of Motion Extremities: Normal Inspection, Normal Range of Motion, Non-Tender, No Pedal Edema, Normal Capillary Refill Neurological: Alert, Oriented, CN II-XII Intact, Normal Cognition, Normal Gait Psychiatric: Normal Affect Skin Exam: Warm Course - Vital Signs Text/Narrative:: Labs/EKG/CXR was discussed with patient and his spouse Duoneb x1 Solumedrol 125 mg IV x1 Last Recorded V/S: Last Vital Signs Temp 36.7 C 07/06/20 17:50 Pulse 86 07/06/20 17:50 Resp 20 07/06/20 17:50 BP 121/68 07/06/20 17:50 Pulse Ox 94 L 07/06/20 17:50 - Orders/Labs/Meds Orders: Active Orders 24 hr Category Date Time Status Saline Lock Insert [OM.PC] Routine Oth 07/06/20 16:13 Ordered EKG 12 Lead [EK] Routine Ther 07/06/20 16:13 Ordered Labs: Laboratory Tests 07/06/20 07/06/20 07/06/20 Range/Units 16:20 16:20 16:20 WBC 9.8 (3.2-10.1) x10-3/uL RBC 4.63 (3.90-5.90) x10(6)uL Hgb 15.8 (12.9-17.7) g/dL Hct 48.4 (38.3-50.1) % MCV 104.6 H (80.8-98.7) fL MCH 34.1 H (27.0-33.3) pg MCHC 32.6 (28.7-35.3) g/dL RDW 13.5 (12.4-15.0) % Plt Count 144 (117-477) x10(3)uL MPV 9.4 (6.7-11.0) fL Neut % (Auto) 68.4 (40.3-71.8) % Lymph % (Auto) 23.2 (15.8-45.3) % [place] % (Auto) 6.8 (5.5-15.2) % Eos % (Auto) 1.1 (0.1-6.8) % Baso % (Auto) 0.5 (0.3-3.8) % Neut # (Auto) 6.7 (1.7-6.9) x10-3/uL Lymph # (Auto) 2.3 (0.5-4.5) x10-3/uL [place] # (Auto) 0.7 (0.0-1.2) x10-3/uL Eos # (Auto) 0.1 (0.0-0.6) x10-3/uL Baso # (Auto) 0.1 (0.0-0.3) x10-3/uL PT 11.8 H (9.0-11.1) sec INR 1.10 (1.00-1.24) APTT 26.7 (24.4-33.2) SECONDS Sodium 138 (135-145) mmol/L Potassium 4.1 (3.5-5.3) mmol/L Chloride 96 L (100-110) mmol/L Carbon Dioxide 42 H* (21-32) mmol/L BUN 11 (7-18) mg/dL Creatinine 0.7 (0.70-1.30) mg/dL Est Cr Clr Drug Dosing 105.82 mL/min Estimated GFR (MDRD) > 60 (>60) BUN/Creatinine Ratio 15.7 (9-20) Glucose 109 (80-116) mg/dL Lactic Acid (0.4-2.0) mmol/L Calcium 8.8 (8.6-10.2) mg/dL Total Bilirubin 0.5 (0.1-1.3) mg/dL AST 17 D (5-25) IU/L ALT 23 D (12-36) U/L Alkaline Phosphatase 87 (56-112) IU/L Troponin I (4.0-60.3) pg/mL NT-Pro-B Natriuret Pep (<=125) pg/mL Total Protein 7.3 (6.0-8.0) g/dL Albumin 3.5 (3.2-4.6) g/dL Globulin 3.8 g/dL Albumin/Globulin Ratio 0.9 07/06/20 07/06/20 Range/Units 16:20 16:20 WBC (3.2-10.1) x10-3/uL RBC (3.90-5.90) x10(6)uL Hgb (12.9-17.7) g/dL Hct (38.3-50.1) % MCV (80.8-98.7) fL MCH (27.0-33.3) pg MCHC (28.7-35.3) g/dL RDW (12.4-15.0) % Plt Count (117-477) x10(3)uL MPV (6.7-11.0) fL Neut % (Auto) (40.3-71.8) % Lymph % (Auto) (15.8-45.3) % [place] % (Auto) (5.5-15.2) % Eos % (Auto) (0.1-6.8) % Baso % (Auto) (0.3-3.8) % Neut # (Auto) (1.7-6.9) x10-3/uL Lymph # (Auto) (0.5-4.5) x10-3/uL [place] # (Auto) (0.0-1.2) x10-3/uL Eos # (Auto) (0.0-0.6) x10-3/uL Baso # (Auto) (0.0-0.3) x10-3/uL PT (9.0-11.1) sec INR (1.00-1.24) APTT (24.4-33.2) SECONDS Sodium (135-145) mmol/L Potassium (3.5-5.3) mmol/L Chloride (100-110) mmol/L Carbon Dioxide (21-32) mmol/L BUN (7-18) mg/dL Creatinine (0.70-1.30) mg/dL Est Cr Clr Drug Dosing mL/min Estimated GFR (MDRD) (>60) BUN/Creatinine Ratio (9-20) Glucose (80-116) mg/dL Lactic Acid 0.6 (0.4-2.0) mmol/L Calcium (8.6-10.2) mg/dL Total Bilirubin (0.1-1.3) mg/dL AST (5-25) IU/L ALT (12-36) U/L Alkaline Phosphatase (56-112) IU/L Troponin I 111.9 H* (4.0-60.3) pg/mL NT-Pro-B Natriuret Pep 95 (<=125) pg/mL Total Protein (6.0-8.0) g/dL Albumin (3.2-4.6) g/dL Globulin g/dL Albumin/Globulin Ratio Meds: Medications Discontinued Medications Generic Name Dose Route Start Last Admin Trade Name Freq PRN Reason Stop Dose Admin Albuterol/Ipratropium 3 ml 07/06/20 17:13 07/06/20 17:24 Albuterol/Ipratropium 3.0-0.5 Mg/3 Ml Neb Soln NEB 07/06/20 17:14 3 ml NOW STA Administration Methylprednisolone Sodium Succinate 125 mg 07/06/20 17:14 07/06/20 17:24 Methylprednisolone Sodium Succinate 125 Mg/2 Ml Sdv IVPUSH 07/06/20 17:15 125 mg NOW STA Administration Sodium Chloride 10 ml 07/06/20 16:13 07/06/20 16:53 Sodium Chloride 0.9% 10 Ml Syringe FLUSH 10 ml ASDIRECTED PRN Administration Keep Vein Open Departure - Departure Time of Disposition: 17:50 Disposition: Home, Self-Care 01 Condition: Good Clinical Impression: COPD (chronic obstructive pulmonary disease), Elevated troponin - Discharge Information Prescriptions: predniSONE [Prednisone] 20 mg PO DAILY #30 tablet Instructions: Heart Failure, Self Care, [id number], Chronic Obstructive Pulmonary Disease, [id number] Referrals: Rodrigo Burr MD [Primary Care Provider] - Forms: ED Department Discharge Additional Instructions: Please read discharge instructions on COPD exacerbation Prednisone 20 mg, 2 tablets daily for 5 days starting tomorrow Z-[place] as directed Follow up as needed Sepsis Event Note (ED) - Evaluation Sepsis Screening Result: No Definite Risk - Focused Exam Vital Signs: Vital Signs Temp Pulse Resp BP Pulse Ox 07/06/20 17:50 36.7 C 86 20 121/68 94 L 07/06/20 16:02 36.9 C 95 22 H 157/91 H 91 L - My Orders Last 24 Hours: My Active Orders 07/06/20 16:13 Saline Lock Insert [OM.PC] Routine EKG 12 Lead [EK] Routine - Assessment/Plan Last 24 Hours: My Active Orders 07/06/20 16:13 Saline Lock Insert [OM.PC] Routine EKG 12 Lead [EK] Routine
[2020-07-06 19:13] VITALS: BP 121/68; PULSE 86
== END 2020-07-06 17:55 | disposition home or self-care (01) ==
LOC: FB.ED 16:02
DX: J44.9 Chronic obstructive pulmonary disease, unspecified (principal); R79.89 Other specified abnormal findings of blood chemistry; I25.10 Atherosclerotic heart disease of native coronary artery without angina pectoris; I11.0 Hypertensive heart disease with heart failure; I50.9 Heart failure, unspecified; I25.2 Old myocardial infarction; M19.90 Unspecified osteoarthritis, unspecified site; E66.9 Obesity, unspecified; Z68.31 Body mass index [BMI] 31.0-31.9, adult; Z79.82 Long term (current) use of aspirin; Z79.899 Other long term (current) drug therapy; Z86.73 Personal history of transient ischemic attack (TIA), and cerebral infarction without residual deficits; Z72.0 Tobacco use
CPT/HCPCS: 36415; 71045; 80053; 83605; 83880; 84484; 85025; 85610; 85730; 93005; 94640; 96374; 99285-25; A9270-GY; J2930; J7620-GY

== ENCOUNTER 2023-10-30 19:42 | Emergency (ER) | payer BC, MEDICARE ==
[2023-10-30] MEDS ORDERED: predniSONE 20 MG Tab PO ONE (19:43)
[2023-10-30] MEDS ORDERED: Cyclobenzaprine 10 MG Tab PO ONE (19:43)
[2023-10-30 19:49] VITALS: BP 186/116; PULSE 90
[2023-10-30] MEDS: Ketorolac 15 MG/ML SDV IM ONE (20:27)
== END 2023-10-30 20:40 | disposition home or self-care (01) ==
LOC: FB.ED 19:42
DX: M54.16 Radiculopathy, lumbar region (principal); I11.0 Hypertensive heart disease with heart failure; I50.9 Heart failure, unspecified; I25.10 Atherosclerotic heart disease of native coronary artery without angina pectoris; I25.2 Old myocardial infarction; J44.9 Chronic obstructive pulmonary disease, unspecified; E66.9 Obesity, unspecified; Z87.891 Personal history of nicotine dependence; Z79.82 Long term (current) use of aspirin; Z79.899 Other long term (current) drug therapy; Z91.040 Latex allergy status
CPT/HCPCS: 96372; 99283; J1885; A9270-GY; J7512